=== PATIENT | male | born 1970 | race Caucasian/White ===

== ENCOUNTER 2019-11-22 10:44 | Outpatient (REF) | payer BC, SELFPAY ==
[2019-11-22 11:33] LABS: Blood Urea Nitrogen 13 mg/dL (9-16); Estimated Glomerular Filt Rate > 60
== END 2019-11-22 10:45 | disposition home or self-care (01) ==
LOC: HO.LAB 10:44
PROVIDERS: PCP Internal Medicine; Visit Provider Internal Medicine
DX: R53.83 Other fatigue (principal); Z86.19 Personal history of other infectious and parasitic diseases
CPT/HCPCS: 82565; 84520

== ENCOUNTER 2019-11-23 07:48 | Outpatient (REF) | payer BC, SELFPAY ==
--- NOTE | 2019-11-23 07:44 | CT_ITS ---
EXAMINATION: CT CHEST WITH CONTRAST CLINICAL INFORMATION: Pulmonary nodule follow-up COMPARISON: 08/16/2019 and 06/03/2019 TECHNIQUE: Multidetector volumetric CT imaging of the chest was obtained after the administration of 65 mL of Omnipaque 350 intravenous contrast without immediate adverse reactions. Axial MIP volume rendering provided. Sagittal and coronal reformatted images were obtained. This CT examination was performed using dose optimization techniques as appropriate, variously including the following: *Automated exposure control *Adjustment of mA and/or kV according to patient size (this includes techniques or standardized protocols for targeted exams where dose is matched to indication/reason for exam; i.e. extremities or head) *Use of iterative reconstruction technique DLP: 569 mGy-cm FINDINGS: c LUNGS: There is a 5 mm mean diameter left lower lobe subpleural nodule as seen on 4, image 523, which is stable from the previous examination in August, but significantly decreased in size from May, when it measured up to 1.8 cm. This is compatible with a convalescent infectious/inflammatory process. There are couple scattered calcified granulomata. No new or suspicious pulmonary nodules. Lungs are otherwise clear. No evidence of interstitial lung disease or pulmonary fibrosis. No significant bronchial wall thickening or bronchiectasis. MEDIASTINUM: The mediastinum is normal. PLEURA: There is no pleural effusion. No pleural mass or thickening. AXILLA: No lymphadenopathy. UPPER ABDOMEN: Diffuse hepatic steatosis. OSSEOUS STRUCTURES: Unremarkable. IMPRESSION: * Again seen is a 5 mm subpleural nodule within the left lateral costophrenic sulcus, stable from the examination August, but significantly decreased in size since May indicating convalescent infectious/inflammatory process. * No suspicious nodules or evidence of pulmonary malignancy. * Lungs otherwise clear. * Diffuse hepatic steatosis.
[2019-11-23] MEDS: iohexoL 350 MG/ML 100 ML INFUS..BTL IV (08:40)
== END 2019-11-23 07:49 | disposition home or self-care (01) ==
LOC: HO.CT 07:48
PROVIDERS: Visit Provider Internal Medicine
DX: R91.1 Solitary pulmonary nodule (principal); Z86.19 Personal history of other infectious and parasitic diseases
CPT/HCPCS: 71260

== ENCOUNTER 2020-02-07 07:38 | Outpatient (REF) | payer BC, SELFPAY ==
[2020-02-07 11:21] LABS: MANUAL DIFF FLAG NO
[2020-02-07 11:25] LABS: Basophils Absolute Auto 0.1 X10*3/uL (0.0-0.2); Basophils Percent Auto 0.9 % (0-2); Eosinophils Absolute Auto 0.1 X10*3/uL (0.0-0.4); Eosinophils Percent Auto 1.8 % (0-4); Hematocrit 43.5 % (42-52); Hemoglobin 13.5 g/dl (14.0-18.0); Imm Gran Abs Auto 0.13 X10*3/uL (0.00-0.03); Imm Gran Pct Auto 1.7 % (0.0-0.4); Lymphocytes Absolute Auto 1.6 X10*3/uL (1.2-4.9); Lymphocytes Percent Auto 20.5 % (20-40); Mean Corpuscular Hemoglobin 28.7 pg (27.0-33.0); Mean Corpuscular Volume 92.4 fL (80-98); Monocytes Absolute Auto 0.6 X10*3/uL (0.1-1.2); Monocytes Percent Auto 8.1 % (2-11); Neutrophils Absolute Auto 5.3 X10*3/uL (2.0-8.3); Platelet Count 223 X10*3/uL (160-400); Red Blood Count 4.71 X10*6/uL (4.60-5.80); Red Cell Distribution Width 13.3 % (11.0-16.0); White Blood Count 7.9 X10*3/uL (4.8-10.8)
[2020-02-07 11:41] LABS: Estimated Average Glucose 174 mg/dL; Hemoglobin A1c % 7.7 %
[2020-02-07 11:58] LABS: Alanine Aminotransferase 31 U/L (0-40); Albumin Level 4.2 g/dL (3.5-5.0); Alkaline Phosphatase 84 U/L (39-117); Anion Gap 15 (12-20); Aspartate Amino Transferase 22 U/L (5-37); Bilirubin Direct 0.2 mg/dL (0.0-0.5); Bilirubin Total 0.4 mg/dL (0.0-1.0); Blood Urea Nitrogen 15 mg/dL (9-16); Carbon Dioxide 26 mmol/L (22-29); Chloride 102 mmol/L (96-108); Cholesterol 154 mg/dL; Estimated Glomerular Filt Rate > 60; Glucose Fasting 168 mg/dL (60-99); HDL Cholesterol 47 mg/dL; LDL Cholesterol Calculated 81 mg/dl; Potassium 4.5 mmol/l (3.3-5.1); Sodium 138 mmol/L (135-145); Total Protein 7.2 g/dL (6.5-8.0); Triglycerides 134 mg/dL
[2020-02-07 12:19] LABS: Prostate Specific Antigen Scr 0.51 ng/mL (<0.05-4.0)
== END 2020-02-07 07:39 | disposition home or self-care (01) ==
LOC: HO.HMGCLDS 07:38
PROVIDERS: PCP Internal Medicine; Visit Provider Internal Medicine
DX: R53.83 Other fatigue (principal); E78.5 Hyperlipidemia, unspecified
CPT/HCPCS: 36415; 80051; 80061; 80076; 82565; 82947; 83036; 84153; 84520; 85025

== ENCOUNTER 2020-08-31 13:35 | Outpatient (REF) | payer BC, SELFPAY ==
--- NOTE | ~2020-08-31 | XR_ITS ---
EXAMINATION: XR KNEE, LEFT CLINICAL INFORMATION: Left knee pain. COMPARISON: None TECHNIQUE: Four views of the left knee. FINDINGS: No acute fracture or dislocation. Mild medial compartment joint space narrowing. Tiny medial and patellofemoral compartment marginal osteophytes. No osseous erosion. No significant joint effusion. No abnormal soft tissue calcification. XR/XR knee LT 4V IMPRESSION: Mild medial and patellofemoral compartment osteoarthritis.
== END 2020-08-31 13:36 | disposition home or self-care (01) ==
LOC: HO.HMGCX 13:35
PROVIDERS: PCP Internal Medicine; Visit Provider Internal Medicine
DX: M25.562 Pain in left knee (principal)
CPT/HCPCS: 73564

== ENCOUNTER 2020-09-03 07:05 | Outpatient (REF) | payer BC, SELFPAY ==
[2020-09-03 08:02] LABS: MANUAL DIFF FLAG NO
[2020-09-03 08:06] LABS: Basophils Absolute Auto 0.1 X10*3/uL (0.0-0.2); Basophils Percent Auto 0.8 % (0-2); Eosinophils Absolute Auto 0.2 X10*3/uL (0.0-0.4); Eosinophils Percent Auto 1.8 % (0-4); Hematocrit 41.3 % (42-52); Hemoglobin 12.9 g/dl (14.0-18.0); Imm Gran Abs Auto 0.06 X10*3/uL (0.00-0.03); Imm Gran Pct Auto 0.7 % (0.0-0.4); Lymphocytes Percent Auto 22.8 % (20-40); Mean Corpuscular HGB Conc 31.2 g/dl (31.0-36.0); Mean Corpuscular Hemoglobin 28.3 pg (27.0-33.0); Mean Corpuscular Volume 90.6 fL (80-98); Mean Platelet Volume 10.3 fL (9.4-12.4); Monocytes Absolute Auto 0.7 X10*3/uL (0.1-1.2); Monocytes Percent Auto 8.3 % (2-11); Neutrophils Absolute Auto 5.9 X10*3/uL (2.0-8.3); Neutrophils Percent Auto 65.6 % (45-73); Platelet Count 244 X10*3/uL (160-400); Red Blood Count 4.56 X10*6/uL (4.60-5.80); Red Cell Distribution Width 13.5 % (11.0-16.0)
[2020-09-03 08:19] LABS: Estimated Average Glucose 146 mg/dL; Hemoglobin A1c % 6.7 %
[2020-09-03 08:26] LABS: Alanine Aminotransferase 23 U/L (0-40); Albumin Level 4.4 g/dL (3.5-5.0); Alkaline Phosphatase 80 U/L (39-117); Anion Gap 14 (12-20); Aspartate Amino Transferase 24 U/L (5-37); Bilirubin Total 0.4 mg/dL (0.0-1.0); Blood Urea Nitrogen 17 mg/dL (9-16); Calcium 9.5 mg/dL (8.4-10.2); Carbon Dioxide 27 mmol/L (22-29); Chloride 104 mmol/L (96-108); Cholesterol 146 mg/dL; Estimated Glomerular Filt Rate > 60; Glucose Fasting 122 mg/dL (60-99); HDL Cholesterol 42 mg/dL; LDL Cholesterol Calculated 85 mg/dl; Sodium 140 mmol/L (135-145); Total Protein 7.4 g/dL (6.5-8.0); Triglycerides 97 mg/dL
[2020-09-03 08:53] LABS: Prostate Specific Antigen 0.42 ng/mL (<0.05-4.0)
== END 2020-09-03 07:06 | disposition home or self-care (01) ==
LOC: HO.LAB 07:05
PROVIDERS: PCP Internal Medicine; Visit Provider Internal Medicine
DX: Z00.00 Encounter for general adult medical examination without abnormal findings (principal); Z12.5 Encounter for screening for malignant neoplasm of prostate; E11.9 Type 2 diabetes mellitus without complications; R97.20 Elevated prostate specific antigen [PSA]; R53.83 Other fatigue; E78.00 Pure hypercholesterolemia, unspecified
CPT/HCPCS: 36415; 80053; 80061; 83036; 84153; 85025

== ENCOUNTER 2020-12-04 09:07 | Outpatient (REF) | payer BC, SELFPAY ==
[2020-12-04 10:38] LABS: C Reactive Protein 0.59 mg/dL (< or = 0.50)
[2020-12-04 10:43] LABS: Estimated Average Glucose 140 mg/dL; Hemoglobin A1c % 6.5 %
[2020-12-04 11:11] LABS: Erythrocyte Sedimentation Rate 7 MM/HR (0-15)
== END 2020-12-04 09:08 | disposition home or self-care (01) ==
LOC: HO.LAB 09:07
PROVIDERS: PCP Internal Medicine; Visit Provider Internal Medicine
DX: E11.9 Type 2 diabetes mellitus without complications (principal); R53.83 Other fatigue
CPT/HCPCS: 36415; 83036; 85652; 86140

== ENCOUNTER 2020-12-31 10:00 | Outpatient (RCR) | payer BC, SELFPAY ==
--- NOTE | 2020-12-04 13:53 | MHC.PT.EP ---
[facility] [place] Office [place] Office [place] Office [address] [phone] F: [phone] F: [phone] F: [phone] F: [phone] Physical Therapy Plan of Care Date of Evaluation: Date of Surgery: Diagnosis: Keerthi Knee Pain Assessment: Heriberto is a pleasant 50 yo gentleman with increasing knee pain keerthi over the last few months. 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 Upon exam, impairments include decreased knee ROM, decreased strength of hip rotators and abductors, he demonstrates altered gait and balance and increased pain. Functional limitations include decreased ability to perform static standing and longer distances of walking, decreased tolerance to performing higher demand homemaking tasks, decreased ability to participate in fitness and recreational activities and disrupted sleep. A pt is a good candidate for skilled PT due to age, potential remediation of impairments, typical disease/condition progression and prognosis, comorbidities, and motivation. pt would benefit from tailored program of therapeutic activities, functional training, gait training, postural education, neuromuscular re-education, and modalities as needed. Frequency and Duration: The patient will be seen 2 x week for 4 weeks Short Term Goals: INITIATE HEP AND PROMOTE SELF MANGEMENT OF SYMPTOMS IN 2 VISITS [facility] Goals: IN 6 WEEKS: TO DEMONSTRATE FULL KNEE ROM, EQUAL KEERTHI TO DEMONSTRATE FULL LE STRENGTH, EQUAL KEERTHI TO ASCEND AND DESCEND STAIRS WITHOUT PAIN GREATER THAN 2/10 TO AMBULATE AD KASHMIR ON LEVEL AND UNEVEN SURFACES FOR FITNESS WITHOUT PAIN GREATER THAN 2/10 TO PERFORM FULL FUNCTIONAL SQUAT WITHOUT SUBSTITUTION Treatment Plan: Modalities to reduce pain, spasms and effusion. Manual therapy to restore motion and function. Therapeutic exercise to improve strength and flexibility. Neuromuscular re-education for posture and balance. Therapeutic activities to return to functional activities of daily living. Electronically signed by: JAMSHID MOORE PT, DPT Please sign and return to therapist. Thank you for your referral.
--- NOTE | 2021-02-11 10:46 | MHC.PT.DC ---
[facility] [place] Office [place] Office [place] Office [address] Manuel Cruz [address] [phone] F: [phone] F: [phone] F: [phone] F: [phone] Physical Therapy Discharge Report Diagnosis: Ger Knee Pain Date of Surgery: Date of Evaluation: 12/04/20 Date of Discharge: 01/02/21 Treatments to Date: 6 Cancellations to Date: 2 No Shows to Date: 1 Discharge Status: Improved Function Patient Elected to Stop Discharge Summary: At last attended visit, Heriberto was progressing well and demonstrating increasing strength, increasing ROM and decreasing pain. He no showed for his last scheduled appointment and we were unable to reach him by phone. Current status is unknown. Electronically signed by: Umu Velasquez PT, DPT Please sign and return to therapist. Thank you for your referral.
== END 2021-02-11 10:47 | disposition home or self-care (01) ==
LOC: HO.PT 10:00
PROVIDERS: PCP Internal Medicine; Visit Provider Internal Medicine
DX: M25.561 Pain in right knee (principal); M25.562 Pain in left knee; M25.462 Effusion, left knee; M25.461 Effusion, right knee
CPT/HCPCS: 97110; 97112; 97161

== ENCOUNTER 2021-02-05 09:45 | Outpatient (REF) | payer BC, SELFPAY ==
[2021-02-05 11:17] LABS: MANUAL DIFF FLAG NO
[2021-02-05 11:32] LABS: Basophils Absolute Auto 0.1 X10*3/uL (0.0-0.2); Basophils Percent Auto 0.7 % (0-2); Eosinophils Absolute Auto 0.1 X10*3/uL (0.0-0.4); Eosinophils Percent Auto 1.1 % (0-4); Hematocrit 43.5 % (42.0-52.0); Hemoglobin 13.6 g/dl (14.0-18.0); Imm Gran Abs Auto 0.07 X10*3/uL (0.00-0.03); Imm Gran Pct Auto 0.8 % (0.0-0.4); Lymphocytes Absolute Auto 1.7 X10*3/uL (1.2-4.9); Lymphocytes Percent Auto 19.7 % (20-40); Mean Corpuscular HGB Conc 31.3 g/dl (31.0-36.0); Mean Corpuscular Hemoglobin 28.1 pg (27.0-33.0); Mean Corpuscular Volume 89.9 fL (80.0-98.0); Mean Platelet Volume 10.6 fL (9.4-12.4); Monocytes Absolute Auto 0.6 X10*3/uL (0.1-1.2); Monocytes Percent Auto 6.8 % (2-11); Neutrophils Absolute Auto 6.1 x10*3/uL (2.0-8.3); Neutrophils Percent Auto 70.9 % (45-73); Platelet Count 262 X10*3/uL (160-400); Red Blood Count 4.84 X10*6/uL (4.60-5.80); Red Cell Distribution Width 13.6 % (11.0-16.0); White Blood Count 8.5 X10*3/uL (4.8-10.8)
[2021-02-05 12:43] LABS: Alanine Aminotransferase 24 U/L (0-40); Albumin Level 4.3 g/dL (3.5-5.0); Alkaline Phosphatase 74 U/L (39-117); Anion Gap 15 (12-20); Aspartate Amino Transferase 19 U/L (5-37); Bilirubin Total 0.5 mg/dL (0.0-1.0); Blood Urea Nitrogen 14 mg/dL (9-16); Calcium 9.8 mg/dL (8.4-10.2); Carbon Dioxide 27 mmol/L (22-29); Chloride 103 mmol/L (96-108); Cholesterol 154 mg/dL; Estimated Glomerular Filt Rate > 60; HDL Cholesterol 47 mg/dL; LDL Cholesterol Calculated 87 mg/dl; Sodium 140 mmol/L (135-145); Total Protein 7.3 g/dL (6.5-8.0); Triglycerides 102 mg/dL
[2021-02-05 13:03] LABS: Prostate Specific Antigen 0.37 ng/mL (<0.05-4.0)
[2021-02-05 13:21] LABS: Glucose Fasting 122 mg/dL (60-99)
== END 2021-02-05 09:46 | disposition home or self-care (01) ==
LOC: HO.HMGCLDS 09:45
PROVIDERS: PCP Internal Medicine; Visit Provider Internal Medicine
DX: Z12.5 Encounter for screening for malignant neoplasm of prostate (principal); R53.83 Other fatigue
CPT/HCPCS: 36415; 80053; 80061; 84153; 85025

== ENCOUNTER 2021-02-15 06:33 | Day surgery (SDC) | payer BC, SELFPAY ==
--- NOTE | 2021-02-14 11:40 | HO.ANESPROP2 ---
Documented by User: Shani Santiago NP 02/14/21 11:46 HPI - Anesthesia Eval Consult details Narrative: 50yo M for Colonoscopy [facility] Past Medical History Medical History (Updated 02/14/21 @ 10:58 by Nicole Yates) COVID-19 Hypertension Inguinal hernia Non-insulin dependent type 2 diabetes mellitus Sleep apnea Umbilical hernia Social History Social History Patient Tobacco Use Status: Never used Tobacco Use of substances other than those prescribed or required for medical reasons: No Have you been hit, kicked, punched, or otherwise hurt by someone within the past year? If so, by whom?: No Are you DNR?: No Advance Directives: No Advance Directives Information Provided: Yes Advance Directives Date on File: 11/23/19 Meds Allergies Allergy/AdvReac Type Severity Reaction Status Date / Time No Known Allergies Allergy Unverified 10/27/19 14:59 [No Known Allergies*] Home Medications Medication Instructions Recorded Confirmed Last Taken Type Vitamin C 02/14/21 Unknown History Vitamin D (with calcium) 1 tab PO DAILY 02/14/21 02/14/21 Unknown History lisinopril 1 tab PO DAILY 02/14/21 02/14/21 Unknown History metformin 1 tab PO BID 02/14/21 02/14/21 Unknown History Exam Exam Date and Time: February 14, 2021 1140 Assessment and Plan Assessment Anesthesia Assessment: Chart Reviewed Documented by User: Ezequiel Tobias MD 02/15/21 07:13 [facility] Past Medical History Medical History (Updated 02/14/21 @ 10:58 by Nicole Yates) COVID-19 Hypertension Inguinal hernia Non-insulin dependent type 2 diabetes mellitus Sleep apnea Umbilical hernia Family History Family history of problems with anesthesia: No Surgical History History of Problems with Anesthesia: No Social History Social History Patient Tobacco Use Status: Never used Tobacco Use of substances other than those prescribed or required for medical reasons: No Have you been hit, kicked, punched, or otherwise hurt by someone within the past year? If so, by whom?: No Are you DNR?: No Advance Directives: No Advance Directives Information Provided: Yes Advance Directives Date on File: 11/23/19 Meds Allergies Allergy/AdvReac Type Severity Reaction Status Date / Time No Known Allergies Allergy Unverified 10/27/19 14:59 [No Known Allergies*] Home Medications Medication Instructions Recorded Confirmed Last Taken Type Vitamin C 02/14/21 Unknown History Vitamin D (with calcium) 1 tab PO DAILY 02/14/21 02/14/21 Unknown History lisinopril 1 tab PO DAILY 02/14/21 02/14/21 Unknown History metformin 1 tab PO BID 02/14/21 02/14/21 Unknown History Exam Airway Mallampati Class: III TM Dist: >3cm Neck ROM: Limited Partial: Upper Loose/Missing/Broken Teeth: Yes Heart: [id number] Lungs: cta b/l Assessment and Plan Assessment Anesthesia Assessment: Anesthesia Plan Discussed Final Anesthetic Review Family History of Problems with Anesthesia: No History of Problems with Anesthesia: No NPO: Yes ASA Class: III Final Preanesthetic Review: No Changes in Pt Med Stat, Meds/Allgs Chart Reviewed, Consent Obtained/Reviewed and Anes Risks/Benef Reviewed Patient Risk: Intermediate (airway) Procedure Risk: Low Assessment/Block/Sedation in SS: Assess/Block/Sedation-SS Anesthetic Plan Anesthetic Plan: MAC: and Agree w/ Assess. and Plan Disposition: Standard PACU
[2021-02-15 06:41] VITALS: BP 156/81; PULSE 84; RESP 18; TEMP 37; O2SAT 99; BMI 52.1
[2021-02-15 06:55] LABS: Glucose, Whole Blood 102 mg/dL (60-115)
[2021-02-15] MEDS: Lactated Ringers 1,000 ML 100 ML IVCONT (07:40)
[2021-02-15 08:52] VITALS: BP 119/66; PULSE 79; RESP 20; TEMP 36.1; O2SAT 95
--- NOTE | 2021-02-15 08:55 | PM.OP ---
Brief Operative Note Date of Service: 02/15/21 Pre-op diagnosis: Screening Post-op diagnosis: other (Rectal polyp, Internal hemorrhoids) Procedure: Colonoscopy to the cecum and TI with hot snare polypectomy and placement of 1 Resolution clip Surgeon: Ramin Donahue Anesthesia: MAC Was an Flight Service Agent used for this Procedure?: No Estimated blood loss (mL): 0 Pathology: other (A. Rectal polyp) Condition: stable Disposition: PACU
[2021-02-15 09:07] VITALS: BP 142/83; PULSE 66; RESP 18; TEMP 36.1; O2SAT 95
--- NOTE | 2021-02-15 09:42 | OP_ITS ---
SURGEON: Ramin Donahue MD PREOPERATIVE DIAGNOSIS: Colorectal cancer screening. POSTOPERATIVE DIAGNOSIS: PROCEDURE PERFORMED: Colonoscopy to cecum and terminal ileum with hot snare polypectomy and placement of 1 resolution clip. Full consent was obtained from him for this, including risks of bleeding and perforation. ESTIMATED BLOOD LOSS: COMPLICATIONS: ANESTHESIA: ASSISTANTS: SPECIMENS: POSTOPERATIVE DIAGNOSES: Colorectal cancer screening, rectal polyp, diverticulosis, ? of fibroepithelial polyp at dentate line, and internal hemorrhoids. PREOPERATIVE MEDICATION USED: Monitored anesthesia care. DESCRIPTION OF PROCEDURE: The patient was placed in the left lateral decubitus position. The digital rectal exam revealed no abnormalities. The Olympus video pediatric colonoscope was entered into the rectum and advanced easily to the cecum. Once in the cecum, I did identify normal-appearing cecal pouch with appendiceal orifice and a normal-appearing ileocecal valve. The terminal ileum was cannulated and appeared normal. Scope was withdrawn back in the colon. The entire cecum and ileocecal valve appeared normal. Scope was slowly withdrawn assessing all mucosal surfaces carefully. Preparation was excellent. There was a mild amount of sigmoid diverticulosis. I did not visualize any sign of colitis nor angiodysplasia. In the rectum, in the forward viewing position, was an approximately 1.5 cm polyp on a short stalk. It did not appear to be definitively adenomatous. However, it was removed with a hot snare polypectomy. The polypectomy site appeared clean, without any sign of residual polyp nor bleeding. A single resolution clip was deployed on the polypectomy site with good placement and good hemostasis. In the rectum, the scope was retroflexed visualizing prominent internal hemorrhoidal tissue. There was 1 particularly polypoid area that might have been a fibroepithelial polyp, but it was below the dentate line and therefore was not biopsied nor removed. The scope was straightened and withdrawn from the patient. He tolerated the procedure well and was returned to the recovery area in stable condition. IMPRESSION: 1. Rectal polyp, status post hot snare polypectomy. 2. Internal hemorrhoids and possible fibroepithelial polyp below the dentate line. 3. Diverticulosis. 4. Internal hemorrhoids. PLAN: The results of the pathology will be checked. If this is a tubular adenoma, I would recommend a followup colonoscopy within 3 years. He was advised not to use any aspirin or NSAIDs for 1 week. I shall speak with him about possibly seeing Dr. Ayala in consultation for further evaluation of his hemorrhoids, as well as the area that appears to be a fibroepithelial polyp to be sure it does not need to be removed for a more definitive pathology analysis. MD KEYLA Ortega/ITALO / [id number] MTDD
== END 2021-02-15 09:37 | disposition home or self-care (01) ==
PROVIDERS: PCP Internal Medicine; Visit Provider Internal Medicine
PROC: 0DJD8ZZ Inspection of Lower Intestinal Tract, Via Natural or Artificial Opening Endoscopic (ICD-10-PCS; CPT 45378; principal; 2021-02-15 07:30)
DX: Z12.11 Encounter for screening for malignant neoplasm of colon (principal); K62.1 Rectal polyp; K57.30 Diverticulosis of large intestine without perforation or abscess without bleeding; K64.8 Other hemorrhoids; I10 Essential (primary) hypertension; G47.33 Obstructive sleep apnea (adult) (pediatric); E11.9 Type 2 diabetes mellitus without complications; Z79.84 Long term (current) use of oral hypoglycemic drugs; Z79.899 Other long term (current) drug therapy; Z99.89 Dependence on other enabling machines and devices; Z86.16 Personal history of COVID-19
CPT/HCPCS: 45385; 82947; 88305

== ENCOUNTER → 2021-03-11 14:39 | Outpatient (BNVA) | payer BC, SELFPAY | PROVIDERS: PCP Internal Medicine; Visit Provider Surgery | DX: K64.9 Unspecified hemorrhoids (principal) | CPT/HCPCS: 46600 ==

== ENCOUNTER 2021-03-19 06:57 | Outpatient (REF) | payer BC, SELFPAY ==
[2021-03-19 07:51] LABS: Blood Urea Nitrogen 16 mg/dL (9-16); Estimated Glomerular Filt Rate > 60
== END 2021-03-19 06:58 | disposition home or self-care (01) ==
LOC: HO.LAB 06:57
PROVIDERS: PCP Internal Medicine; Visit Provider Internal Medicine
DX: R53.83 Other fatigue (principal)
CPT/HCPCS: 36415; 82565; 84520

== ENCOUNTER 2021-03-20 07:44 | Outpatient (REF) | payer BC, SELFPAY ==
--- NOTE | ~2021-03-20 | CT_ITS ---
EXAMINATION: CT CHEST WITH CONTRAST CLINICAL INFORMATION: Post Covid infection. Follow-up. COMPARISON: Previous chest CT most recent November 2019. TECHNIQUE: Multidetector volumetric CT imaging of the chest was obtained after the administration of 65 mL of Omnipaque 350 intravenous contrast without immediate adverse reactions. Axial MIP volume rendering provided. Sagittal and coronal reformatted images were obtained. This CT examination was performed using dose optimization techniques as appropriate, variously including the following: *Automated exposure control *Adjustment of mA and/or kV according to patient size (this includes techniques or standardized protocols for targeted exams where dose is matched to indication/reason for exam; i.e. extremities or head) *Use of iterative reconstruction technique DLP: 513 mGy-cm. FINDINGS: URB[employer] GARDENING SPECIALIST: Unremarkable. LUNGS: There are 2, 2 mm calcified left lower lobe nodules axial image 81 and 84 series 7 that are stable. The lungs are otherwise clear. No evidence of fibrotic lung disease is seen. No evidence of emphysema or bronchiectasis is seen. There is no endobronchial or endotracheal lesion. MEDIASTINUM: The mediastinum is normal. PLEURA: There is no pleural effusion. No pleural mass or thickening. AXILLA: No lymphadenopathy. UPPER ABDOMEN: There may be fatty infiltration of the liver. OSSEOUS STRUCTURES: There are degenerative changes of the spine. CT/CT chest w con IMPRESSION: Stable small calcified left lower lobe nodules probably representing calcified granulomas. No evidence of fibrotic lung disease. Fleischner guidelines were followed.
[2021-03-20] MEDS: iohexoL 350 MG/ML 100 ML INFUS..BTL 65 ML IV (08:56)
== END 2021-03-20 07:45 | disposition home or self-care (01) ==
LOC: HO.CT 07:44
PROVIDERS: PCP Internal Medicine; Visit Provider Internal Medicine
DX: R91.1 Solitary pulmonary nodule (principal); Z86.16 Personal history of COVID-19
CPT/HCPCS: 71260; Q9967

== ENCOUNTER 2021-06-06 03:18 | Emergency (ER) | payer BC, SELFPAY ==
--- NOTE | ~2021-06-06 | XR_ITS ---
EXAMINATION: XR CHEST CLINICAL INFORMATION: Chest pain. COMPARISON: CT chest 03/20/2021. TECHNIQUE: Frontal view of the chest was obtained. FINDINGS: Multiple external artifacts overlie the thorax. Normal appearance of the cardiomediastinal structures. No effusions or pneumothoraces. Normal pattern of pulmonary vasculature. No focal pulmonary consolidation. XR/XR chest 1V IMPRESSION: No acute cardiopulmonary abnormalities.
--- NOTE | 2021-06-06 03:20 | ECG_ITS ---
Test Reason : CHEST PAIN Blood Pressure : / mmHG Vent. Rate : 089 BPM Atrial Rate : 089 BPM P-R Int : 146 ms QRS Dur : 074 ms QT Int : 350 ms P-R-T Axes : 073 -04 -04 degrees QTc Int : 425 ms Normal sinus rhythm Nonspecific ST abnormality Borderline ECG When compared with ECG of 20-JAN-2007 14:40, No significant changes seen Referred By: Generic ED Physician Electronically Signed By:KAYLA DUTTON
--- NOTE | 2021-06-06 03:43 | ED_ITS ---
HPI - Chest Pain General Chief Complaint: Chest Pain Stated Complaint: chest pain, bloated Time Seen by Provider: 06/06/21 03:43 Source: patient Mode of arrival: ambulatory Limitations: no limitations History of Present Illness HPI narrative: Patient history of sleep apnea hypertension diabetes been having mid chest pain since yesterday feel lot of gas in the chest with mild epigastric pain no radiation of pain to the touch jaw or arm , no shortness of breath no diaphoresis no nausea vomiting patient felt better after burping no history of gastric problems in the past Related Data Home Medications Medication Instructions Recorded Confirmed Vitamin C 02/14/21 Vitamin D (with calcium) 1 tab PO DAILY 02/14/21 02/14/21 lisinopril 1 tab PO DAILY 02/14/21 02/14/21 metformin 1 tab PO BID 02/14/21 02/14/21 albuterol sulfate 90 mcg/actuation 0 mcg INHALATION 03/11/21 aerosol inhaler lorazepam 1 mg tablet 1 mg PO TID 03/11/21 Allergies Allergy/AdvReac Type Severity Reaction Status Date / Time No Known Allergies Allergy Verified 06/06/21 03:51 [No Known Allergies*] [facility] Past Medical History Medical History COVID-19 Hemorrhoids Hypertension Inguinal hernia Morbid obesity Non-insulin dependent type 2 diabetes mellitus Sleep apnea Umbilical hernia Social History Social History Patient Tobacco Use Status: Never used Tobacco Advance Directives: No Advance Directives Information Provided: Yes Advance Directives Date on File: 11/23/19 Physical Exam Vital Signs: Vital Signs: Last Vital Signs Temp 97.7 F 06/06/21 06:21 Pulse 78 06/06/21 06:21 Resp 17 06/06/21 06:21 BP 147/85 H 06/06/21 06:21 Pulse Ox 100 06/06/21 06:21 BMI result Body Mass Index 52.3 Appearance: Alert. Oriented X3. No acute distress. Obese patient ENT: Pharynx normal. Oral Mucosa moist Neck: Normal inspection. Neck supple. CVS: Normal heart rate and rhythm. Pulses normal. Respiratory: No respiratory distress. Equal air entry bilateral, no wheezing/rales/rhonchi Abdomen: Soft and nontender. Bowel sounds are present, no mass palpable, no CVA tenderness Skin: Skin warm and dry. Normal skin color. Normal skin turgor. Extremities: No lower extremity edema. No calf tenderness Neuro: Oriented X 3. MDM - Chest Pain MDM Narrative Medical decision making narrative: Patient atypical chest pain no EKG changes 2 sets of troponin negative patient advised to take baby aspirin daily no chest pain at this time advised to follow with cardiology for further workup Lab Data Attestation: I reviewed the patient's lab results. Result diagrams: 06/06/21 04:19 06/06/21 04:19 Labs: Lab Results 06/06/21 06/06/21 06/06/21 Range/Units 04:19 04:19 04:19 WBC 9.6 (4.8-10.8) X10*3/uL RBC 4.81 (4.60-5.80) X10*6/uL Hgb 13.3 L (14.0-18.0) g/dl Hct 42.7 (42.0-52.0) % MCV 88.8 (80.0-98.0) fL MCH 27.7 (27.0-33.0) pg MCHC 31.1 (31.0-36.0) g/dl RDW 13.7 (11.0-16.0) % Plt Count 249 (160-400) X10*3/uL MPV 10.3 (9.4-12.4) fL Immature Gran % (Auto) 0.6 H (0.0-0.4) % Neut % (Auto) 72.6 (45-73) % Lymph % (Auto) 17.4 L (20-40) % [place] % (Auto) 7.9 (2-11) % Eos % (Auto) 0.9 (0-4) % Baso % (Auto) 0.6 (0-2) % Lymph # (Auto) 1.7 (1.2-4.9) X10*3/uL [place] # (Auto) 0.8 (0.1-1.2) X10*3/uL Eos # (Auto) 0.1 (0.0-0.4) X10*3/uL Baso # (Auto) 0.1 (0.0-0.2) X10*3/uL Abs Immat Gran (auto) 0.06 H (0.00-0.03) X10*3/uL Absolute Neuts (auto) 6.9 (2.0-8.3) x10*3/uL Absolute Nucleated RBC 0.000 (0.0-0.012) X10*3/uL Nucleated RBC % (auto) 0.0 (0.0-0.2) /100WBC Sodium 136 (135-145) mmol/L Potassium 4.4 (3.3-5.1) mmol/L Chloride 102 (96-108) mmol/L Carbon Dioxide 26 (22-29) mmol/L Anion Gap 12 (12-20) BUN 14 (9-16) mg/dL Creatinine 0.81 (0.5-1.4) mg/dL Estim Creat Clear Calc 183.0 Estimated GFR > 60 Random Glucose 122 H (60-115) mg/dL Calcium 9.5 (8.4-10.2) mg/dL Troponin I High Sens < 3.5 (<3.5-35.0) ng/L 06/06/21 Range/Units 06:19 WBC (4.8-10.8) X10*3/uL RBC (4.60-5.80) X10*6/uL Hgb (14.0-18.0) g/dl Hct (42.0-52.0) % MCV (80.0-98.0) fL MCH (27.0-33.0) pg MCHC (31.0-36.0) g/dl RDW (11.0-16.0) % Plt Count (160-400) X10*3/uL MPV (9.4-12.4) fL Immature Gran % (Auto) (0.0-0.4) % Neut % (Auto) (45-73) % Lymph % (Auto) (20-40) % [place] % (Auto) (2-11) % Eos % (Auto) (0-4) % Baso % (Auto) (0-2) % Lymph # (Auto) (1.2-4.9) X10*3/uL [place] # (Auto) (0.1-1.2) X10*3/uL Eos # (Auto) (0.0-0.4) X10*3/uL Baso # (Auto) (0.0-0.2) X10*3/uL Abs Immat Gran (auto) (0.00-0.03) X10*3/uL Absolute Neuts (auto) (2.0-8.3) x10*3/uL Absolute Nucleated RBC (0.0-0.012) X10*3/uL Nucleated RBC % (auto) (0.0-0.2) /100WBC Sodium (135-145) mmol/L Potassium (3.3-5.1) mmol/L Chloride (96-108) mmol/L Carbon Dioxide (22-29) mmol/L Anion Gap (12-20) BUN (9-16) mg/dL Creatinine (0.5-1.4) mg/dL Estim Creat Clear Calc Estimated GFR Random Glucose (60-115) mg/dL Calcium (8.4-10.2) mg/dL Troponin I High Sens < 3.5 (<3.5-35.0) ng/L ECG Data ECG #1: Attestation: I personally reviewed and interpreted this ECG as follows: Interpretation: Normal sinus rhythm heart rate 89 beats per minute normal interval normal axis no acute ST wave changes no acute ischemia Discharge Plan Discharge Clinical Impression: Chest pain Patient Disposition: Home, Self-Care Instructions: Chest Pain (ED) Additional Instructions: Take baby aspirin daily Report to the ER if worsening of chest pain or if chest pain continues See cardiology for further workup including stress test Prescriptions: No Action Vitamin C 500 mg capsule 0RF Vitamin D (with calcium) 25 mg tablet 1 tab PO DAILY 0RF lisinopril 10 mg tablet 1 tab PO DAILY 0RF metformin 500 mg tablet 1 tab PO BID 0RF lorazepam 1 mg tablet 1 mg PO TID 0RF albuterol sulfate 90 mcg/actuation HFA aerosol inhaler 0 mcg inhalation 0RF Referrals: Antoine Okeefe MD [Physician] - 1 week
[2021-06-06 03:51] VITALS: BP 144/78; PULSE 79; RESP 16; TEMP 37; O2SAT 100; BMI 52.3
[2021-06-06 04:23] VITALS: PULSE 79; RESP 20; O2SAT 98
[2021-06-06 04:23] LABS: MANUAL DIFF FLAG NO
[2021-06-06 04:24] LABS: Basophils Absolute Auto 0.1 X10*3/uL (0.0-0.2); Basophils Percent Auto 0.6 % (0-2); Eosinophils Absolute Auto 0.1 X10*3/uL (0.0-0.4); Eosinophils Percent Auto 0.9 % (0-4); Hematocrit 42.7 % (42.0-52.0); Hemoglobin 13.3 g/dl (14.0-18.0); Imm Gran Abs Auto 0.06 X10*3/uL (0.00-0.03); Imm Gran Pct Auto 0.6 % (0.0-0.4); Lymphocytes Absolute Auto 1.7 X10*3/uL (1.2-4.9); Lymphocytes Percent Auto 17.4 % (20-40); Mean Corpuscular HGB Conc 31.1 g/dl (31.0-36.0); Mean Corpuscular Hemoglobin 27.7 pg (27.0-33.0); Mean Corpuscular Volume 88.8 fL (80.0-98.0); Mean Platelet Volume 10.3 fL (9.4-12.4); Monocytes Absolute Auto 0.8 X10*3/uL (0.1-1.2); Monocytes Percent Auto 7.9 % (2-11); Neutrophils Absolute Auto 6.9 x10*3/uL (2.0-8.3); Neutrophils Percent Auto 72.6 % (45-73); Platelet Count 249 X10*3/uL (160-400); Red Blood Count 4.81 X10*6/uL (4.60-5.80); Red Cell Distribution Width 13.7 % (11.0-16.0); White Blood Count 9.6 X10*3/uL (4.8-10.8)
[2021-06-06] MEDS: Aspirin 81 MG TAB.CHEW PO (04:25)
[2021-06-06] MEDS: Famotidine/PF 20 MG/2 ML VIAL IVPUSH (04:25)
[2021-06-06 04:41] LABS: Anion Gap 12 (12-20); Blood Urea Nitrogen 14 mg/dL (9-16); Calcium 9.5 mg/dL (8.4-10.2); Carbon Dioxide 26 mmol/L (22-29); Chloride 102 mmol/L (96-108); Estimated Glomerular Filt Rate > 60; Glucose Random 122 mg/dL (60-115); Potassium 4.4 mmol/L (3.3-5.1); Sodium 136 mmol/L (135-145)
[2021-06-06 04:42] LABS: Troponin-I High Sensitivity < 3.5 ng/L (<3.5-35.0)
[2021-06-06 06:21] VITALS: BP 147/85; PULSE 78; RESP 17; TEMP 36.5; O2SAT 100
[2021-06-06 06:41] LABS: Troponin-I High Sensitivity < 3.5 ng/L (<3.5-35.0)
== END 2021-06-06 07:23 | disposition home or self-care (01) ==
PROVIDERS: Emergency Provider Internal Medicine; PCP Internal Medicine
DX: R07.9 Chest pain, unspecified (principal); I10 Essential (primary) hypertension; E11.9 Type 2 diabetes mellitus without complications; E66.01 Morbid (severe) obesity due to excess calories; Z68.43 Body mass index [BMI] 50.0-59.9, adult
CPT/HCPCS: 36415; 71045; 80048; 84484; 85025; 93005; 96374; 99284

== ENCOUNTER 2021-06-13 10:19 | Outpatient (REF) | payer BC, SELFPAY ==
[2021-06-13 11:48] LABS: Estimated Average Glucose 137 mg/dL; Hemoglobin A1c % 6.4 %
== END 2021-06-13 10:20 | disposition home or self-care (01) ==
LOC: HO.HMGCLDS 10:19
PROVIDERS: PCP Internal Medicine; Visit Provider Internal Medicine
DX: E11.9 Type 2 diabetes mellitus without complications (principal)
CPT/HCPCS: 36415; 83036

== ENCOUNTER → 2021-07-10 13:16 | Outpatient (BNVA) | payer BC, SELFPAY | PROVIDERS: PCP Internal Medicine; Referring Provider Internal Medicine; Visit Provider Internal Medicine | DX: Z13.89 Encounter for screening for other disorder (principal) ==

== ENCOUNTER → 2021-08-20 08:23 | Outpatient (REF) | payer BC, SELFPAY ==
--- NOTE | ~2021-08-20 | NM_ITS ---
Exercise Myocardial perfusion study Indication: Precordial chest pain to evaluate for myocardial ischemia Technique: The patient was brought in for an exercise perfusion study on 08/20/2021. Patient performed exercise as per [place] protocol and was injected 45 mCi of sestamibi was given intravenously one target HR was achieved. Images were obtained using the SPECT gamma camera interlaced with the gating device. Images were obtained in supine position. Resting perfusion study was performed on 08/22/2001. Patient was administered 45 mCi of sestamibi intravenously at rest. Images were then obtained in supine position. Images obtained with and without CT attenuation. Total DLP 222 mGy-cm. Images were processed with the software and compared side to side in short axis, horizontal long axis and vertical long axis views. Findings: The stress perfusion study showed non attenuated images show mildly to moderately reduced uptake in the basal and mid lateral wall of the LV myocardium as well as mildly reduced uptake in the basal septum of the LV myocardium. Attenuated corrected images show mildly reduced uptake in the basal lateral wall of the LV myocardium. The gated study shows normal LV systolic function with calculated LVEF of 74%. LV cavity is normal in size. The gated study shows normal systolic wall thickening and contraction of all segments. There is no transient ischemic dilation. Resting study shows non attenuated images show uptake in the basal and mid lateral wall as well as mildly reduced uptake in the basal septum of the LV myocardium. Attenuation corrected images show improved uptake in the basal lateral wall of the LV myocardium. Gating at rest reveals normal systolic wall motion with ejection fraction at 59%. The findings are consistent with reversible defect of the basal lateral wall consistent with ischemia. NM/NM cardiolite stress test Impression: 1. Basal lateral wall ischemia 2. Gated LVEF is 59% 3. Transient ischemic dilatation not present Stress EKG is negative for ischemia
--- NOTE | 2021-08-20 08:27 | CA_ITS ---
Acquisition Time: 2021-08-20 08:32:48 Total Exercise Time: 00:05:38 Test Indications: Chest Pain Medications: Protocol: LESLY Max HR: 171 BPM 101% of Pred: 168 BPM Max BP: 146/066 mmHG Max Work Load: 7.2 METS Exercise stress nuclear test using Lesly protocol, total of 5 min 38 sec, METS 7.20 and TAPHR up tp 101%. Pt tolerated well, denies any anginal sx, EKG with occasional PAC's, without ischemic changes during exercise or in recovery. Nuclear images to follow. Normotensive response to exercise. Test reviewed with Dr. Vargas Referred By: Sergey Magaña Overread By: Marla Ojeda NP
== END ==
LOC: HO.CARD 08:23
PROVIDERS: PCP Internal Medicine; Visit Provider Internal Medicine
DX: R07.2 Precordial pain (principal)
CPT/HCPCS: 78452; 93017; A9500

== ENCOUNTER → 2021-08-28 09:26 | Outpatient (REF) | payer BC, SELFPAY ==
--- NOTE | 2021-08-28 09:29 | CA_ITS ---
Transthoracic Echocardiogram Patient (Last, First, Middle): Heriberto Foley F Gender: Male Date of : 1970 Age: 51 Procedure Date: 08/28/2021 Procedure Type: Transthoracic Echocardiogram Location: OP Height: 185.42 cm Weight: 181.44 kg BSA: 2.89 m2 Heart Rate: 79 bpm BP: 124 / 78 mmHg Furnace Charger: JOSE Referring MD: Sergey Magaña MD Stator Plate Washer: Sean Vargas MD Symptoms: R07.2 - Precordial pain Study Quality: Adequate/Contrast ECG Rhythm: Sinus Conclusions: - 1. Technically limited study despite use of contrast agent 2. Normal LV systolic and diastolic function 3. Limited visualization of cardiac valves with normal cardiac valvular Doppler Findings Procedure Information Contrast agent, definity, is being given per protocol without apparent complications. Left Ventricle Normal left ventricular size, thickness, and systolic function. The visually estimated ejection fraction is between 65-70%. There is no evidence of regional wall motion abnormalities. Spectral Doppler is indicative of a normal filling pattern. Right Ventricle Normal right ventricular cavity size and systolic function. Atria The left atrium is normal in size. Interatrial shunt cannot be excluded. The right atrium was not well visualized. Aortic Valve The aortic valve was not well visualized. There is no aortic valve stenosis. There is no aortic valve regurgitation. Mitral Valve The mitral valve was not well visualized. There is no mitral valve regurgitation. There is no mitral valve stenosis. Pulmonic Valve The pulmonic valve was not well visualized. Tricuspid Valve The tricuspid valve was not well visualized. Tricuspid regurgitation envelope is inadequate for calculation of right ventricular systolic pressure. Great Vessels The aorta was not well visualized. The pulmonary artery was not well visualized. Venous The inferior vena cava was not well visualized. Pericardium/Pleural The pericardium was not well visualized. Prior Study Comparison No prior study available for comparison. Measurements 2D Linear Measurements IVSd: 0.72 0.6-0.9/0.6-1.0 cm LVIDd: 5.25 3.9-5.3/4.2-5.9 cm LVIDd Index: 1.82 2.4-3.2/2.2-3.1 cm/m2 LVIDs: 3.03 2.0-3.6 cm LVPWd: 0.70 0.7-1.1 cm LA Diam: 3.10 2.7-3.8/3.0-4.0 cm LAIDs Index: 1.07 1.5-2.3 cm/m2 LV Mass: 158.26 67-162/88-224 g LV Mass Index: 54.76 43-95/49-115 g/m2 LVOT Diam: 2.60 3.0+(-)1.3 cm 2D Systolic Function EF 4C: 68.50 >55% EF 2C: 77.00 >55% Mitral Valve MV Pk E: 0.90 MV PK A: 0.70 MV Decel Time: 204.00 E/A: 1.30 E'Lateral: 11.20 E'Medial: 9.68 E/E' Med: 9.30 E/E' Lat: 8.10 PHT: 60.00 MVA PHT: 3.67 Decel Citrus: 4.44 Aortic Valve AoV Pk Kareem: 1.55 AoV Mn Kareem: 1.10 AoV VTI: 0.27 AoV Pk Grad: 10.00 Aov Mn Grad: 5.00 REGINA Cont.VTI: 4.81 LVOT LVOT Pk Kareem: 1.31 LVOT Mn Kareem: 0.89 LVOT VTI: 0.24 LVOT Pk Grad: 7.00 LVOT Mn Grad: 4.00 LVOT Diam: 2.60 LVOT Area: 5.31 Diastolic Function MV Pk E: 0.90 MV Pk A: 0.70 E/A: 1.30 E'Medial: 9.68 E/E' Med: 9.30 E' Laterial: 11.20 E/E' Lat: 8.10 Right Ventricle TAPSE (mm): 26.90 TVS' Kareem: 16.00 Great Vessels Aorta Sinus of Valsalva: 3.60 2.0-3.5 cm Ao Asc: 3.30 2.1-3.4 cm Pulmonary Valve PV Pk Kareem: 1.10 Peak PV Grad: 5.00 Updated in Other Vendor System with Status of Final Sean Vargas MD electronically signed on 08/28/2021 12:01:55 PM with status of Final
== END ==
LOC: HO.CARD 09:26
PROVIDERS: PCP Internal Medicine; Visit Provider Internal Medicine
DX: R07.2 Precordial pain (principal)
CPT/HCPCS: 93306; Q9957

== ENCOUNTER 2021-09-16 07:58 | Outpatient (REF) | payer BC, SELFPAY ==
[2021-09-16 11:33] LABS: Estimated Average Glucose 131 mg/dL; Hemoglobin A1c % 6.2 %
[2021-09-16 12:00] LABS: Cholesterol 158 mg/dL; HDL Cholesterol 45 mg/dL; LDL Cholesterol Calculated 94 mg/dl; Triglycerides 99 mg/dL
== END 2021-09-16 07:59 | disposition home or self-care (01) ==
LOC: HO.HMGCLDS 07:58
PROVIDERS: PCP Internal Medicine; Visit Provider Internal Medicine
DX: E78.5 Hyperlipidemia, unspecified (principal); E11.9 Type 2 diabetes mellitus without complications
CPT/HCPCS: 36415; 80061; 83036

== ENCOUNTER 2021-10-17 08:00 | Outpatient (REF) | payer BC, SELFPAY ==
[2021-10-22 15:10] LABS: H Pylori Breath Test Negative (Negative)
== END 2021-10-17 08:01 | disposition home or self-care (01) ==
LOC: HO.LNP 08:00
PROVIDERS: Visit Provider Physician Assistant
DX: Z01.818 Encounter for other preprocedural examination (principal); E66.01 Morbid (severe) obesity due to excess calories; I10 Essential (primary) hypertension; E11.8 Type 2 diabetes mellitus with unspecified complications
CPT/HCPCS: 83013

== ENCOUNTER 2021-10-23 08:23 | Outpatient (REF) | payer BC, SELFPAY ==
[2021-10-23 08:39] LABS: MANUAL DIFF FLAG NO
[2021-10-23 09:05] LABS: Basophils Absolute Auto 0.1 X10*3/uL (0.0-0.2); Basophils Percent Auto 0.9 % (0-2); Eosinophils Absolute Auto 0.1 X10*3/uL (0.0-0.4); Eosinophils Percent Auto 1.1 % (0-4); Hematocrit 43.7 % (42.0-52.0); Hemoglobin 13.7 g/dl (14.0-18.0); Imm Gran Abs Auto 0.06 X10*3/uL (0.00-0.03); Imm Gran Pct Auto 0.7 % (0.0-0.4); Lymphocytes Absolute Auto 1.8 X10*3/uL (1.2-4.9); Lymphocytes Percent Auto 22.6 % (20-40); Mean Corpuscular HGB Conc 31.4 g/dl (31.0-36.0); Mean Corpuscular Hemoglobin 27.7 pg (27.0-33.0); Mean Corpuscular Volume 88.5 fL (80.0-98.0); Mean Platelet Volume 10.4 fL (9.4-12.4); Monocytes Absolute Auto 0.6 X10*3/uL (0.1-1.2); Monocytes Percent Auto 7.7 % (2-11); Neutrophils Absolute Auto 5.4 x10*3/uL (2.0-8.3); Platelet Count 244 X10*3/uL (160-400); Red Blood Count 4.94 X10*6/uL (4.60-5.80); Red Cell Distribution Width 13.6 % (11.0-16.0); White Blood Count 8.1 X10*3/uL (4.8-10.8)
[2021-10-23 09:14] LABS: Estimated Average Glucose 131 mg/dL; Hemoglobin A1c % 6.2 %
[2021-10-23 09:47] LABS: Alanine Aminotransferase 29 U/L (0-40); Albumin Level 4.3 g/dL (3.5-5.0); Alkaline Phosphatase 74 U/L (39-117); Anion Gap 13 (12-20); Aspartate Amino Transferase 20 U/L (5-37); Bilirubin Total 0.6 mg/dL (0.0-1.0); Blood Urea Nitrogen 18 mg/dL (9-16); C Reactive Protein 1.57 mg/dL (< or = 0.50); Calcium 9.3 mg/dL (8.4-10.2); Carbon Dioxide 27 mmol/L (22-29); Chloride 103 mmol/L (96-108); Cholesterol 167 mg/dL; Estimated Glomerular Filt Rate > 60; Glucose Random 115 mg/dL (60-115); HDL Cholesterol 49 mg/dL; Iron 89 mcg/dL (45-160); LDL Cholesterol Calculated 98 mg/dl; Percent Iron Saturation 28 % (15-50); Potassium 5.3 mmol/L (3.3-5.1); Sodium 138 mmol/L (135-145); Total Iron Binding Capacity 316 mcg/dL (228-428); Total Protein 7.4 g/dL (6.5-8.0); Triglycerides 101 mg/dL; Unsaturated Iron Binding 227 ug/dL
[2021-10-23 09:56] LABS: Ferritin 189 ng/mL (20-250); Insulin 53 uU/mL (2-29); Vitamin D 25-OH Total 24.1 ng/mL (>30)
[2021-10-23 10:08] LABS: Vitamin B12 311 pg/mL (200-900)
[2021-10-24 14:03] LABS: Calcium (PTHI) 9.6 mg/dL (8.6-10.3); PTHI 70 pg/mL (16-77)
[2021-10-27 18:46] LABS: Zinc 80 mcg/dL (60-130)
[2021-10-28 06:22] LABS: Vitamin B1 10 nmol/L (8-30)
[2021-10-30 19:17] LABS: Vitamin A 59 mcg/dL (38-98)
== END 2021-10-23 08:24 | disposition home or self-care (01) ==
LOC: HO.LAB 08:23
PROVIDERS: PCP Internal Medicine; Visit Provider Physician Assistant
DX: Z01.818 Encounter for other preprocedural examination (principal); E66.01 Morbid (severe) obesity due to excess calories; I10 Essential (primary) hypertension; E11.8 Type 2 diabetes mellitus with unspecified complications
CPT/HCPCS: 36415; 80053; 80061; 82306; 82607; 82728; 82746; 83036; 83525; 83540; 83970; 84425; 84443; 84590; 84630; 85025; 86140

== ENCOUNTER 2021-11-04 08:37 | Outpatient (REF) | payer BC, SELFPAY ==
[2021-11-04 09:46] LABS: Potassium 5.2 mmol/L (3.3-5.1)
== END 2021-11-04 08:38 | disposition home or self-care (01) ==
LOC: HO.LAB 08:37
PROVIDERS: PCP Internal Medicine; Visit Provider Physician Assistant
DX: E87.5 Hyperkalemia (principal)
CPT/HCPCS: 36415; 84132

== ENCOUNTER → 2021-11-11 09:01 | Outpatient (BNVA) | payer BC, SELFPAY | PROVIDERS: PCP Internal Medicine; Referring Provider Physician Assistant; Visit Provider Counselor Mental Health | DX: F41.1 Generalized anxiety disorder (principal); E66.01 Morbid (severe) obesity due to excess calories | CPT/HCPCS: 90791 ==

== ENCOUNTER 2021-11-26 10:36 | Outpatient (REF) | payer BC, SELFPAY ==
[2021-11-26 11:05] LABS: COVID-19 Test Positive (Negative)
== END 2021-11-26 10:37 | disposition home or self-care (01) ==
LOC: HO.LAB 10:36
PROVIDERS: Visit Provider Internal Medicine
DX: Z20.822 Contact with and (suspected) exposure to COVID-19 (principal)
CPT/HCPCS: 87635; C9803

== ENCOUNTER 2022-02-12 06:28 | Outpatient (REF) | payer BC, SELFPAY ==
[2022-02-12 11:11] LABS: MANUAL DIFF FLAG NO
[2022-02-12 11:31] LABS: Basophils Absolute Auto 0.1 X10*3/uL (0.0-0.2); Basophils Percent Auto 0.8 % (0-2); Eosinophils Absolute Auto 0.1 X10*3/uL (0.0-0.4); Eosinophils Percent Auto 1.7 % (0-4); Hematocrit 42.9 % (42.0-52.0); Hemoglobin 13.1 g/dl (14.0-18.0); Imm Gran Abs Auto 0.08 X10*3/uL (0.00-0.03); Lymphocytes Absolute Auto 1.9 X10*3/uL (1.2-4.9); Lymphocytes Percent Auto 22.2 % (20-40); Mean Corpuscular HGB Conc 30.5 g/dl (31.0-36.0); Mean Corpuscular Hemoglobin 28.1 pg (27.0-33.0); Mean Corpuscular Volume 92.1 fL (80.0-98.0); Monocytes Absolute Auto 0.6 X10*3/uL (0.1-1.2); Monocytes Percent Auto 7.4 % (2-11); Neutrophils Absolute Auto 5.6 x10*3/uL (2.0-8.3); Neutrophils Percent Auto 66.9 % (45-73); Platelet Count 230 X10*3/uL (160-400); Red Blood Count 4.66 X10*6/uL (4.60-5.80); Red Cell Distribution Width 13.9 % (11.0-16.0); White Blood Count 8.3 X10*3/uL (4.8-10.8)
[2022-02-12 11:35] LABS: Estimated Average Glucose 131 mg/dL; Hemoglobin A1C 149.6525 umol/L; Hemoglobin A1c % 6.2 %
[2022-02-12 12:00] LABS: Alanine Aminotransferase 20 U/L (0-40); Alkaline Phosphatase 71 U/L (39-117); Anion Gap 10 (12-20); Aspartate Amino Transferase 18 U/L (5-37); Bilirubin Direct 0.2 mg/dL (0.0-0.5); Bilirubin Total 0.4 mg/dL (0.0-1.0); Blood Urea Nitrogen 17 mg/dL (9-16); Carbon Dioxide 29 mmol/L (22-29); Chloride 105 mmol/L (96-108); Cholesterol 143 mg/dL; Estimated Glomerular Filt Rate > 60; Glucose Fasting 115 mg/dL (60-99); HDL Cholesterol 42 mg/dL; LDL Cholesterol Calculated 80 mg/dl; Potassium 5.1 mmol/L (3.3-5.1); Prostate Specific Antigen 0.52 ng/mL (<0.05-4.0); Sodium 139 mmol/L (135-145); Total Protein 6.8 g/dL (6.5-8.0); Triglycerides 108 mg/dL
== END 2022-02-12 06:29 | disposition home or self-care (01) ==
LOC: HO.HMGCLDS 06:28
PROVIDERS: PCP Internal Medicine; Visit Provider Internal Medicine
DX: Z12.5 Encounter for screening for malignant neoplasm of prostate (principal); R53.83 Other fatigue; E11.9 Type 2 diabetes mellitus without complications; E87.5 Hyperkalemia
CPT/HCPCS: 36415; 80051; 80061; 80076; 82565; 82947; 83036; 84153; 84520; 85025

== ENCOUNTER 2022-05-15 11:27 | Outpatient (REF) | payer BC, SELFPAY ==
[2022-05-15 14:34] LABS: Estimated Average Glucose 137 mg/dL; Hemoglobin A1c % 6.4 %
[2022-05-25 11:49] LABS: Testosterone, Total 230 ng/dL (250-1100)
== END 2022-05-15 11:28 | disposition home or self-care (01) ==
LOC: HO.HMGCLDS 11:27
PROVIDERS: PCP Internal Medicine; Visit Provider Internal Medicine
DX: N52.9 Male erectile dysfunction, unspecified (principal); R53.83 Other fatigue; E11.9 Type 2 diabetes mellitus without complications
CPT/HCPCS: 36415; 83036; 84403

== ENCOUNTER → 2022-07-02 10:50 | Outpatient (BNVA) | payer BC, SELFPAY | PROVIDERS: PCP Internal Medicine; Visit Provider Nurse Practitioner Family ==

== ENCOUNTER 2022-07-05 07:03 | Outpatient (REF) | payer BC, SELFPAY ==
[2022-07-12 17:58] LABS: Testosterone, Total 189 ng/dL (250-1100)
== END 2022-07-05 07:04 | disposition home or self-care (01) ==
LOC: HO.HMGCLDS 07:03
PROVIDERS: PCP Internal Medicine; Visit Provider Nurse Practitioner Family
DX: N52.9 Male erectile dysfunction, unspecified (principal); R79.89 Other specified abnormal findings of blood chemistry
CPT/HCPCS: 36415; 84402; 84403

== ENCOUNTER 2022-10-21 07:37 | Outpatient (REF) | payer BC, SELFPAY ==
[2022-10-26 15:43] LABS: Testosterone, Free 17.5 pg/mL (35.0-155.0); Testosterone, Total 147 ng/dL (250-1100)
== END 2022-10-21 07:38 | disposition home or self-care (01) ==
LOC: HO.HMGCLDS 07:37
PROVIDERS: PCP Internal Medicine; Visit Provider Nurse Practitioner Family
DX: N52.9 Male erectile dysfunction, unspecified (principal); R79.89 Other specified abnormal findings of blood chemistry
CPT/HCPCS: 36415; 84402; 84403

== ENCOUNTER 2022-10-31 08:44 | Outpatient (AMB) | payer BC, SELFPAY ==
--- NOTE | 2022-10-31 08:53 | MHC.OFFVIS ---
Intake Intake Visit Reasons: 3 month labs Intake Note: Patient presents for follow up visit erectile dysfunction/ low testosterone/labs (testosterone 189) Urology Medications: Sildenafil Blood Thinner: none Dietary Supervisor Required: No Accompanied by: Self / Same As Patient Allergies No Known Allergies [No Known Allergies*] Allergy (Verified 11/01/22 20:40) Medication List - Last Reconciled 11/01/22 by FIDENCIO BlancoP- albuterol sulfate 90 mcg/actuation 0 mcg inhalation lisinopril 10 mg PO DAILY lorazepam 1 mg PO TID PRN metformin 500 mg PO BID metoprolol succinate ER 25 mg PO DAILY sildenafil 100 mg PO DAILY PRN tadalafil (Cialis) 5 mg PO DAILY 90 days testosterone 2 pumps topical DAILY 30 days [Vitamin C ] [Vitamin D (with calcium) 1 tab PO DAILY] HPI HPI Comments History of Present Illness Details Heriberto is a pleasant 52-year-old male patient of Dr. Mckeon. He has a past medical history of diabetes, hypertension, obesity, and sleep apnea. He presents to the office today for follow-up. Of note, patient was seen as a new patient for erectile dysfunction and hypogonadism approximately 4 months ago at which time he was started on low-dose Cialis 5 mg daily. When asked patient reports to be doing and feeling well. He reports noting somewhat improvement in maintaining erections since starting 5 mg of Cialis daily. Recent labs reviewed with the patient today. Testosterone: 04/03--230, 07/01--189 free testosterone 35, 11/01--147 and free testosterone 17.5 PSA's: 08/29--0.4, 01/29--0.4, 03/03-- 0.5 He does report having sleep apnea and being extremely compliant with CPAP machine. Discussed at length importance of weight loss, healthy eating, and adequate amount of sleep in relation to erectile dysfunction as well as overall health and well-being. When asked he denies urinary urgency, urinary frequency, incontinence, nocturia, hematuria, dysuria, foul smelling urine, changes to urinary stream, flank pain, fever, and or chills. He is happy with his current voiding parameters. Discussed at length treatment options for erectile dysfunction as well as hypogonadism. Discussed obtaining FSH, LH, albumin, estradiol, prolactin, and SHBG for further assessment evaluation. Once obtained discussed starting testosterone as discussed given decrease in testosterone levels and patient continues to report symptoms of hypogonadism and issues with maintaining erections. Discussed at length importance of managing diabetes for improvement in erectile dysfunction as well as overall health and well-being. A1c 06/01--6.4. FORMERLY [facility] Medical History COVID-19 Hemorrhoids Hypertension Inguinal hernia Morbid obesity Non-insulin dependent type 2 diabetes mellitus Sleep apnea Umbilical hernia Surgical History History of umbilical hernia repair Family History Mother No problems noted. Father Cancer Other Sleep apnea Social History Patient Tobacco Use Status: Never used Tobacco Advance Directives Date on File: 11/23/19 Review of Systems Const Reports as per HPI Eyes Reports no additional complaints ENT Reports no additional complaints Card Reports as per HPI Resp Reports as per HPI GI Reports no additional complaints Reports as per HPI Neuro Reports no additional complaints Psych Reports no additional complaints Endo Reports as per HPI Bob/Lymph Reports no additional complaints Aller/Immun Reports no additional complaints Physical Exam Const General: cooperative, comfortable, no acute distress, well developed, alert and awake Nutritional Appearance: overweight Orientation/consciousness: patient oriented x3 Limitations: no limitations HEENT Head: Yes normal to inspection, Yes normocephalic and Yes atraumatic Ears: hearing grossly normal bilaterally Eyes General: appearance normal, both eyes and all related structures Neck Neck: Yes normal visual inspection and Yes trachea midline Chest Chest palpation & inspection: normal inspection of the chest Resp Effort & Inspection: normal respiratory effort and able to speak in complete sentences Cardio Rate: regular rate GI Inspection: Yes normal to inspection General: Yes no CVA tenderness Back/Spine/Pelvis Back: no CVA tenderness Skin General skin exam: no rashes or lesions noted Neuro General: patient oriented x3 Extrem General: Yes normal to inspection Psych Appearance: grossly normal and well kempt Mental Status: mental status grossly normal Speech and movement: Normal speech and movement present and Clear speech present Affect: normal affect Attitude: cooperative Thought process: Normal thought process present Thought content: Normal thought content present Insight: Good insight present (Psych) Judgement: Good judgement present (Psych) Results AMB Urinalysis, Automated UA Leukoctes 0 Sangita/uL Last Edit by Bhaskar Figueroa [facility] on 10/31/22 09:17 UA Nitrite Negative Last Edit by Bhaskar Figueroa, [facility] on 10/31/22 09:17 UA Urobilinogen 0.2 mg/dL Last Edit by Bhaskar Figueroa [facility] on 10/31/22 09:17 UA Protein 0 mg/dL Last Edit by Bhaskar Figueroa, [facility] on 10/31/22 09:17 UA pH 6.0 Last Edit by Bhaskar Figueroa, [facility] on 10/31/22 09:17 UA Blood 0 Bob/uL Last Edit by Bhaskar Figueroa, [facility] on 10/31/22 09:17 UA Specific [place] 1.030 Last Edit by Bhaskar Figueroa, [facility] on 10/31/22 09:17 UA Ketone Negative Last Edit by Bhaskar Figueroa [facility] on 10/31/22 09:17 UA Bilirubin 0 mg/dL Last Edit by Bhaskar Figueroa, [facility] on 10/31/22 09:17 UA Glucose 0 mg/dL Last Edit by Bhaskar Figueroa [facility] on 10/31/22 09:17 Results Reviewed Results Reviewed: Laboratory Last Values Urine pH (Auto) 6.0 10/31/22 09:16 Specific [place] (Auto) 1.030 10/31/22 09:16 Urine Protein (Auto) 0 mg/dL 10/31/22 09:16 Glucose (UA)(Auto) 0 mg/dL 10/31/22 09:16 Urine Ketones (Auto) Negative 10/31/22 09:16 Urine Blood (Auto) 0 Bob/uL 10/31/22 09:16 Urine Nitrite (Auto) Negative 10/31/22 09:16 Urine Bilirubin (Auto) 0 mg/dL 10/31/22 09:16 Urine Urobilinogen (Auto) 0.2 mg/dL 10/31/22 09:16 Leukocyte Esterase (Auto) 0 Sangita/uL 10/31/22 09:16 Assessment & Plan Assessment & Plan (1) Hypogonadism in male: Code(s): E29.1 - Testicular hypofunction (2) Erectile dysfunction associated with type 2 diabetes mellitus: Code(s): E11.69 - Type 2 diabetes mellitus with other specified complication; N52.1 - Erectile dysfunction due to diseases classified elsewhere (3) Low testosterone: Code(s): R79.89 - Other specified abnormal findings of blood chemistry Plan In office urinalysis results reviewed with the patient today; as noted above. Recent testosterone labs results reviewed with the patient today; as noted above. Discussed at length potential causes for hypogonadism. Discussed and stressed the importance of continuing to maintain diabetes, weight loss, and compliance with CPAP machine for improvement in hypogonadism, erectile dysfunction, and for overall health and well-being. Will obtain FSH, LH, prolactin, estradiol, and SHBG now for further assessment evaluation. Continue 5 mg of Cialis daily as discussed and prescribed. Start testosterone as discussed and prescribed once labs above completed; patient aware and agreeable. Will obtain testosterone free and total, PSA, and CBC in 3 months. Patient denies any bothersome urinary issues at this time. He is happy with current voiding parameters. Follow-up in 3 months with labs to be completed prior; or sooner with any issues, concerns, and or questions. Orders: Orders Follicle Stimulating Hormone 10/31/22 E29.1 - Testicular hypofunction Lutenizing Hormone 10/31/22 E11.69 - Type 2 diabetes mellitus with other specified complication, N52.1 - Erectile dysfunction due to diseases classified elsewhere Prostate Specific Antigen 3 Months E29.1 - Testicular hypofunction Complete Blood Count no Diff 3 Months E29.1 - Testicular hypofunction AMB Urinalysis Automated 10/31/22 N39.0 - Urinary tract infection, site not specified Albumin Level 10/31/22 E29.1 - Testicular hypofunction Estradiol Ultra Sensitive 10/31/22 E29.1 - Testicular hypofunction Prolactin 10/31/22 E29.1 - Testicular hypofunction Sex Hormone Binding Globulin 10/31/22 E29.1 - Testicular hypofunction Testosterone, Free/Total 3 Months E29.1 - Testicular hypofunction Medications: New testosterone apply 2 pumps over max area - alternate shoulders on alternate days 2 pumps topical DAILY 30 days 75 grams 1RF E29.1 - Testicular hypofunction, R79.89 - Other specified abnormal findings of blood chemistry tadalafil (Cialis) 5 mg PO DAILY 90 days 90 tabs 4RF Patient Instructions: The patient had an opportunity to ask questions regarding the treatment plan. All questions were answered. Physical exam, labs, and imaging were discussed and reviewed in detail. As well as risks, benefits, and discussion of treatment choices. No major barriers to understanding were identified. The patient expressed understanding and agreement with the above treatment plan. The patient was made aware they should contact our office by phone for worsening of their current condition, the appearance of new symptoms, or with any questions or concerns. Compliance is encouraged with any medications and follow up testing that is ordered. It is a privilege to be allowed the opportunity to participate in? your urological care.? Again, if you have any questions or concerns If you have any questions or concerns please do not hesitate to contact me. The office is [phone]. This note is constructed using voice recognition software. While every effort has been made to ensure accuracy field nurse case manager errors may have been included. Yours sincerely, CHANCE Blanco Coding Level of Care Code Est Pt Level 4 (68231) Diagnoses Hypogonadism in male E29.1 Erectile dysfunction associated with type 2 diabetes mellitus E11.69; N52.1 Low testosterone R79.89
== END 2022-10-31 09:36 | disposition home or self-care (01) ==
PROVIDERS: PCP Internal Medicine; Visit Provider Nurse Practitioner Family
DX: E29.1 Testicular hypofunction (principal); E11.69 Type 2 diabetes mellitus with other specified complication; N52.1 Erectile dysfunction due to diseases classified elsewhere; R79.89 Other specified abnormal findings of blood chemistry
CPT/HCPCS: 99214

== ENCOUNTER → 2022-10-31 08:44 | Outpatient (BNVA) | payer BC, SELFPAY | PROVIDERS: Visit Provider Nurse Practitioner Family | DX: E29.1 Testicular hypofunction (principal); E11.69 Type 2 diabetes mellitus with other specified complication; N52.1 Erectile dysfunction due to diseases classified elsewhere; Z79.899 Other long term (current) drug therapy | CPT/HCPCS: 81003 ==

== ENCOUNTER 2022-11-19 09:30 | Outpatient (REF) | payer BC, SELFPAY ==
[2022-11-20 20:49] LABS: Follicle Stimulating Hormone 8.4 mIU/mL (1.6-8.0); Lutenizing Hormone 3.7 mIU/mL (1.5-9.3); Prolactin 4.2 ng/mL (2.0-18.0); Sex Hormone Binding Globulin 35 nmol/L (10-50)
[2022-11-25 23:29] LABS: Estradiol Ultra Sensitive 30 pg/mL (< OR = 29)
== END 2022-11-19 09:31 | disposition home or self-care (01) ==
LOC: HO.HMGCLDS 09:30
PROVIDERS: PCP Internal Medicine; Visit Provider Nurse Practitioner Family
DX: E29.1 Testicular hypofunction (principal); E11.69 Type 2 diabetes mellitus with other specified complication; N52.1 Erectile dysfunction due to diseases classified elsewhere
CPT/HCPCS: 36415; 82040; 82670; 83001; 83002; 84146; 84270

== ENCOUNTER 2023-09-07 07:59 | Outpatient (REF) | payer SELFPAY ==
[2023-09-07 10:07] LABS: MANUAL DIFF FLAG NO
[2023-09-07 10:21] LABS: Basophils Absolute Auto 0.1 X10*3/uL (0.0-0.2); Eosinophils Absolute Auto 0.2 X10*3/uL (0.0-0.4); Hematocrit 42.7 % (42.0-52.0); Hemoglobin 13.3 g/dl (14.0-18.0); Imm Gran Abs Auto 0.13 X10*3/uL (0.00-0.03); Imm Gran Pct Auto 1.4 % (0.0-0.4); Lymphocytes Absolute Auto 2.3 X10*3/uL (1.2-4.9); Lymphocytes Percent Auto 24.9 % (20-40); Mean Corpuscular HGB Conc 31.1 g/dl (31.0-36.0); Mean Corpuscular Hemoglobin 28.6 pg (27.0-33.0); Mean Corpuscular Volume 91.8 fL (80.0-98.0); Mean Platelet Volume 10.9 fL (9.4-12.4); Monocytes Absolute Auto 0.7 X10*3/uL (0.1-1.2); Monocytes Percent Auto 7.9 % (2-11); Neutrophils Absolute Auto 5.9 x10*3/uL (2.0-8.3); Neutrophils Percent Auto 62.8 % (45-73); Platelet Count 225 X10*3/uL (160-400); Red Blood Count 4.65 X10*6/uL (4.60-5.80); Red Cell Distribution Width 13.7 % (11.0-16.0); White Blood Count 9.4 X10*3/uL (4.8-10.8)
[2023-09-07 10:38] LABS: Estimated Average Glucose 148 mg/dL; Hemoglobin A1c % 6.8 % (<6.0)
[2023-09-07 10:45] LABS: Alanine Aminotransferase 26 U/L (0-40); Alkaline Phosphatase 75 U/L (39-117); Anion Gap 13 (12-20); Aspartate Amino Transferase 22 U/L (5-37); Bilirubin Total 0.4 mg/dL (0.0-1.0); Blood Urea Nitrogen 15 mg/dL (9-16); Calcium 9.5 mg/dL (8.4-10.2); Carbon Dioxide 27 mmol/L (22-29); Chloride 104 mmol/L (96-108); Cholesterol 137 mg/dL (<200); Estimated Glomerular Filt Rate > 60; Glucose Fasting 142 mg/dL (60-99); HDL Cholesterol 44 mg/dL (>40); LDL Cholesterol Calculated 73 mg/dL (<100); Sodium 139 mmol/L (135-145); Total Protein 7.1 g/dL (6.5-8.0); Triglycerides 101 mg/dL (<150)
[2023-09-07 10:55] LABS: Prostate Specific Antigen Scr 0.47 ng/mL (<0.05-4.0)
== END 2023-09-07 08:00 | disposition home or self-care (01) ==
LOC: HO.HMGCLDS 07:59
PROVIDERS: PCP Internal Medicine; Visit Provider Internal Medicine
DX: Z00.00 Encounter for general adult medical examination without abnormal findings (principal); Z12.5 Encounter for screening for malignant neoplasm of prostate; Z13.1 Encounter for screening for diabetes mellitus; E78.5 Hyperlipidemia, unspecified
CPT/HCPCS: 36415; 80053; 80061; 83036; 84153; 85025

== ENCOUNTER 2023-12-10 11:27 | Outpatient (REF) | payer BC, SELFPAY ==
--- NOTE | ~2023-12-10 | XR_ITS ---
EXAMINATION: XR CHEST CLINICAL INFORMATION: Cough COMPARISON: X-ray dated June 06, 2021 TECHNIQUE: 2 views of the chest were obtained. FINDINGS: Submitted for interpretation on December 23, 2023. Pulmonary reticular nodular pattern bilaterally. No pleural effusion. No pneumothorax. No hyperinflation. Cardiomediastinal silhouette is normal in size. Multilevel thoracic spondylosis. XR/XR chest 2V IMPRESSION: Chronic interstitial lung disease. Superimposed pneumonitis versus acute airspace disease cannot be excluded. Electronically signed by: Mika Lorenz MD 12/23/2023 07:43 AM EST
== END 2023-12-10 11:28 | disposition home or self-care (01) ==
LOC: HO.HMGCX 11:27
PROVIDERS: PCP Internal Medicine; Visit Provider Internal Medicine
DX: R05.9 Cough, unspecified (principal)
CPT/HCPCS: 71046

== ENCOUNTER → 2023-12-10 11:32 | Outpatient (BNV) | payer BC, SELFPAY | PROVIDERS: PCP Internal Medicine; Visit Provider Radiology Diagnostic Radiology | DX: R05.9 Cough, unspecified (principal) | CPT/HCPCS: 71046 ==

== ENCOUNTER 2024-02-26 11:58 | Emergency (ER) | payer BC, SELFPAY ==
--- NOTE | 2024-02-26 12:07 | ECG_ITS ---
Test Reason : PALPITATIONS Blood Pressure : */* mmHG Vent. Rate : 86 BPM Atrial Rate : 86 BPM P-R Int : 138 ms QRS Dur : 86 ms QT Int : 352 ms P-R-T Axes : 38 -14 19 degrees QTcB Int : 421 ms Normal sinus rhythm Normal ECG When compared with ECG of 06-Jun-2021 03:18, No significant change was found Referred By: Gerald Steinberg Electronically Signed By: MARISELA SPARKS MD
--- NOTE | 2024-02-26 12:10 | ED_ITS ---
HPI - General Adult General Chief complaint: Arrhythmia/Palpitations Stated complaint: sent by pcp r/o afib Time Seen by Provider: 02/26/24 14:04 Source: patient, family and old records reviewed Mode of arrival: ambulatory Limitations: no limitations History of Present Illness ED Provider: NEGRO SANTOS narrative: 53 yo male with PMH of DM, HTN, obesity just started Mounjaro, on 50mg metoprolol daily he had elevated HR last night but denies CP/SOB and it happened during sleep. No recent travel, calf pain, leg swelling. Denies infectious symptoms. No GIB symptoms such as black or bloody stools. He has no symptoms now and nothing was related to exertion. His PCP told him they wanted him to come to the ED for rule out afib. He denies any issues with DOAC use. We have the EKG from his PCP which confirmed afib 130s. No OTC medications, states he feels fine. He thinks an uncle has afib but isn't sure MD complaint: palpitations Onset (ago): day(s) (last night) Location: chest Radiation: non-radiation Severity: mild Quality: other (fast) Relieving factors: none Exacerbating factors: none Associated symptoms: denies other symptoms Treatments prior to arrival: none Related Data Home Medications ?Medication ?Instructions ?Recorded ?Confirmed Vitamin C 02/14/21 11/01/22 Vitamin D (with calcium) 1 tab PO DAILY 02/14/21 11/01/22 albuterol sulfate 90 mcg/actuation 0 mcg inhalation 03/11/21 11/01/22 aerosol inhaler lisinopril 10 mg tablet 10 mg PO DAILY 07/10/21 11/01/22 lorazepam 1 mg tablet 1 mg PO TID PRN 07/10/21 11/01/22 metformin 500 mg tablet 500 mg PO BID 07/10/21 11/01/22 sildenafil 100 mg tablet 100 mg PO DAILY PRN 07/02/22 11/01/22 Previous Rx's ?Medication ?Instructions ?Recorded tadalafil 5 mg tablet (Cialis) 5 mg PO DAILY 90 days #90 tabs 10/31/22 testosterone 2 pump topical DAILY 30 days #75 10/31/22 grams metoprolol succinate 25 mg 25 mg PO DAILY #90 tabs 01/21/23 tablet,extended release 24 hr Allergies Allergy/AdvReac Type Severity Reaction Status Date / Time No Known Allergies Allergy Verified 02/26/24 12:46 [No Known Allergies*] Review of Systems 2 Review of Systems: Constitutional : No Fever, No Chills, No Fatigue ENT/Mouth : No sore throat, No Rhinorrhea Eyes: No Eye Pain, No Swelling, No Redness Cardiovascular : No Chest Pain, No SOB, No Dyspnea on Exertion, pos palpitations Respiratory : No Cough, No Sputum Gastrointestinal : No Nausea, No Vomiting, No Diarrhea, No abdominal Pain Genitourinary : No Dysuria, No Urinary Frequency, No Hematuria, Musculoskeletal : No joint pain, No Myalgias, No Joint Swelling Skin : No Skin Lesions, No rash Neuro : No Weakness, No Numbness, No Dizziness, positive Headache All other systems reviewed and are negative [facility] Past Medical History Attestation statement: The following information was validated with the patient. Source: old records reviewed Medical History Hemorrhoids Morbid obesity Umbilical hernia Inguinal hernia Hypertension Sleep apnea Non-insulin dependent type 2 diabetes mellitus COVID-19 Surgical History History of umbilical hernia repair Family History Family History Mother No problems noted. Father Cancer Other Sleep apnea Social History Social History Patient Tobacco Use Status: Never used Tobacco Advance Directives Date on File: 11/23/19 Physical Exam ED Vital Signs: Vital Signs - 24 hr 02/26/24 12:43 Temperature 99.1 F Pulse Rate 91 Respiratory Rate 20 Blood Pressure 138/84 Pulse Oximetry 95 Oxygen Delivery Method Room Air BMI result Body Mass Index 57.8 Appearance: Alert. Oriented X3. No acute distress. Eyes: Pupils equal, round and reactive to light. ENT: Pharynx normal. Neck: Normal inspection. Neck supple. CVS: Normal heart rate and rhythm. Pulses normal. Respiratory: No respiratory distress. Breath sounds normal. Abdomen: Soft and nontender. Skin: Skin warm and dry. Normal skin color. Normal skin turgor. Extremities: No lower extremity edema. No calf ttp Neuro: Oriented X 3. No motor deficit. No sensory deficit. CN2-12 intact Course Course Course Narrative: RME, this is a rapid medical exam performed by Jason Steinberg please refer to primary provider for complete H&P- 53 year old male with HTN presenting for palpitations sent by his PCP. Pt reports palpitations began last night, also reporting anxiety and denies chest pain. tried relaxing/drinking water with no relief. reports he woke up today and went to his PCP who did an EKG, reportedly sent it to cardiology here, who advised him to come to the ER. Medical Decision Making Medical Decision Making [facility] Narrative: 53 yo male with PMH of DM, HTN, obesity just started Mounjaro, on 50mg metoprolol daily here with c/o palpitations last night but they went away no associated MENDOZA, chest pain, nothing related to exertion. No recent travel/procedures, feels fine. Saw Mugg's office today EKG showed afib rate 130s patient states he feels fine on exam in NSR took his metoprolol. PCP already started on eliquis he has no contraindications. I spoke to him about afib and what we need to control it and discussed risks vs benefits of eliquis. At this time given rate controlled, lack of symptoms and DOAC rx he is stable for DC Differential Diagnosis Differential Diagnoses: The differential diagnosis associated with the presentation includes PAF, lyte abnormality, thyroid issue no CP/SOB not related to exertion doubt ACS no CP/SOB no calf pain or swelling to suggest DVT/PE Admission/Observation Consideration of admission/observation: Escalation of care including admission/observation considered work up negative stable for DC Lab Data [facility] Lab Attestation statement: I reviewed the patient's lab results. 02/26/24 12:17 02/26/24 12:17 Labs: Lab Results 02/26/24 Range/Units 12:17 WBC 8.8 (4.8-10.8) X10*3/uL RBC 4.91 (4.60-5.80) X10*6/uL Hgb 13.9 L (14.0-18.0) g/dl Hct 43.9 (42.0-52.0) % MCV 89.4 (80.0-98.0) fL MCH 28.3 (27.0-33.0) pg MCHC 31.7 (31.0-36.0) g/dl RDW 13.4 (11.0-16.0) % Plt Count 250 (160-400) X10*3/uL MPV 9.8 (9.4-12.4) fL Immature Gran % (Auto) 1.4 H (0.0-0.4) % Neut % (Auto) 71.8 (45-73) % Lymph % (Auto) 18.6 L (20-40) % Sabine % (Auto) 6.5 (2-11) % Eos % (Auto) 0.9 (0-4) % Baso % (Auto) 0.8 (0-2) % Lymph # (Auto) 1.6 (1.2-4.9) X10*3/uL [place]ine # (Auto) 0.6 (0.1-1.2) X10*3/uL Eos # (Auto) 0.1 (0.0-0.4) X10*3/uL Baso # (Auto) 0.1 (0.0-0.2) X10*3/uL Abs Immat Gran (auto) 0.12 H (0.00-0.03) X10*3/uL Absolute Neuts (auto) 6.3 (2.0-8.3) x10*3/uL Absolute Nucleated RBC 0.000 (0.0-0.012) X10*3/uL Nucleated RBC % (auto) 0.0 (0.0-0.2) /100WBC PT 11.4 (10.9-12.4) SEC INR 1.0 (0.9-1.1) Sodium 139 (135-145) mmol/L Potassium 4.7 (3.3-5.1) mmol/L Chloride 105 (96-108) mmol/L Carbon Dioxide 29 (22-29) mmol/L Anion Gap 10 L (12-20) BUN 12 (9-16) mg/dL Creatinine 0.82 (0.5-1.4) mg/dL Estim Creat Clear Calc TNP Estimated GFR > 60 Random Glucose 166 H (60-115) mg/dL Calcium 8.9 D (8.4-10.2) mg/dL Magnesium 1.9 (1.6-2.6) mg/dL Total Bilirubin 0.4 (0.0-1.0) mg/dL AST 32 (5-37) U/L ALT 30 (0-40) U/L Alkaline Phosphatase 77 (39-117) U/L Troponin I High Sens < 2.7 (<3.5-35.0) ng/L Total Protein 7.7 (6.5-8.0) g/dL Albumin 4.0 (3.5-5.0) g/dL TSH 1.36 (0.32-4.0) uIU/mL Independent Interpretation I performed an independent interpretation of an: EKG Interpretation: Rate: 86 Rhythm: NSR Merritt: left Normal P waves. Normal MICA. Normal QRS complex. ST T wave : no NASIM, q waves in inf leads qTC: 421 prior studies: no change 2021 The study has been interpreted contemporaneously by me. . Independent Historian Clinical information obtained from an independent historian. History obtained from or confirmed by: Spouse External Record Review External record reviewed: Outpatient record Prescription Management I considered prescription management with: Other (eliquis confirmed PCP sent in a Rx) Discharge Plan Discharge Clinical Impression: Atrial fibrillation Qualifiers: Atrial fibrillation type: paroxysmal Qualified Code(s): I48.0 - Paroxysmal atrial fibrillation Patient Disposition: Home, Self-Care Instructions: Apixaban (By mouth), A-fib (Atrial Fibrillation) (ED) Additional Instructions: return for worsening symptoms, chest pain, shortness of breath, fainting, bleeding that you cannot control, fall and head injury follow up with your doctor occasionally you may have to increase your metoprolol take the first dose of eliquis tonight remember only tylenol Prescriptions: No Action metoprolol succinate 25 mg tablet extended release 24 hr 25 mg PO DAILY Qty: 90 0RF Rx Instructions: PLEASE CALL [phone] TO SCHEDULE APPPT OR YOU CAN OPT TO GET FUTURE REFILLS FROM PCP, DR. PARR. Thank you Vitamin C 500 mg capsule Vitamin D (with calcium) 25 mg tablet 1 tab PO DAILY albuterol sulfate 90 mcg/actuation HFA aerosol inhaler 0 mcg inhalation lisinopril 10 mg tablet 10 mg PO DAILY metformin 500 mg tablet 500 mg PO BID lorazepam 1 mg tablet 1 mg PO TID PRN sildenafil 100 mg tablet 100 mg PO DAILY PRN tadalafil [Cialis] 5 mg tablet 5 mg PO DAILY 90 Days Qty: 90 4RF testosterone 20.25 mg/1.25 gram (1.62 %) gel in metered-dose pump 2 pump topical DAILY 30 Days Qty: 75 1RF Rx Instructions: apply 2 pumps over max area - alternate shoulders on alternate days Print Language: Canadian
[2024-02-26 12:22] LABS: MANUAL DIFF FLAG NO
[2024-02-26 12:23] LABS: Basophils Absolute Auto 0.1 X10*3/uL (0.0-0.2); Basophils Percent Auto 0.8 % (0-2); Eosinophils Absolute Auto 0.1 X10*3/uL (0.0-0.4); Eosinophils Percent Auto 0.9 % (0-4); Hematocrit 43.9 % (42.0-52.0); Hemoglobin 13.9 g/dl (14.0-18.0); Imm Gran Abs Auto 0.12 X10*3/uL (0.00-0.03); Imm Gran Pct Auto 1.4 % (0.0-0.4); Lymphocytes Absolute Auto 1.6 X10*3/uL (1.2-4.9); Lymphocytes Percent Auto 18.6 % (20-40); Mean Corpuscular HGB Conc 31.7 g/dl (31.0-36.0); Mean Corpuscular Hemoglobin 28.3 pg (27.0-33.0); Mean Corpuscular Volume 89.4 fL (80.0-98.0); Mean Platelet Volume 9.8 fL (9.4-12.4); Monocytes Absolute Auto 0.6 X10*3/uL (0.1-1.2); Monocytes Percent Auto 6.5 % (2-11); Neutrophils Absolute Auto 6.3 x10*3/uL (2.0-8.3); Neutrophils Percent Auto 71.8 % (45-73); Platelet Count 250 X10*3/uL (160-400); Red Blood Count 4.91 X10*6/uL (4.60-5.80); Red Cell Distribution Width 13.4 % (11.0-16.0); White Blood Count 8.8 X10*3/uL (4.8-10.8)
[2024-02-26 12:30] LABS: Prothrombin Time 11.4 SEC (10.9-12.4)
[2024-02-26 12:42] LABS: Alanine Aminotransferase 30 U/L (0-40); Alkaline Phosphatase 77 U/L (39-117); Anion Gap 10 (12-20); Aspartate Amino Transferase 32 U/L (5-37); Bilirubin Total 0.4 mg/dL (0.0-1.0); Blood Urea Nitrogen 12 mg/dL (9-16); Calcium 8.9 mg/dL (8.4-10.2); Carbon Dioxide 29 mmol/L (22-29); Chloride 105 mmol/L (96-108); Estimated Glomerular Filt Rate > 60; Glucose Random 166 mg/dL (60-115); Magnesium 1.9 mg/dL (1.6-2.6); Potassium 4.7 mmol/L (3.3-5.1); Sodium 139 mmol/L (135-145); Total Protein 7.7 g/dL (6.5-8.0)
[2024-02-26 12:43] VITALS: BP 138/84; PULSE 91; RESP 20; TEMP 37.3; O2SAT 95; BMI 57.8
[2024-02-26 12:45] LABS: Troponin-I High Sensitivity < 2.7 ng/L (<3.5-35.0)
[2024-02-26 12:56] LABS: TSH reflex Free T4 1.36 uIU/mL (0.32-4.0)
[2024-02-26 14:31] VITALS: BP 138/84; PULSE 91; RESP 20; TEMP 37.3; O2SAT 95
== END 2024-02-26 14:32 | disposition home or self-care (01) ==
PROVIDERS: Physician Assistant; Emergency Provider Emergency Medicine; PCP Internal Medicine
DX: I48.0 Paroxysmal atrial fibrillation (principal); I10 Essential (primary) hypertension; E11.9 Type 2 diabetes mellitus without complications; E66.01 Morbid (severe) obesity due to excess calories; Z68.43 Body mass index [BMI] 50.0-59.9, adult; Z79.84 Long term (current) use of oral hypoglycemic drugs; Z79.899 Other long term (current) drug therapy
CPT/HCPCS: 36415; 80053; 83735; 84443; 84484; 85025; 85610; 93005; 99283

== ENCOUNTER → 2024-02-26 12:07 | Outpatient (BNV) | payer BC, SELFPAY | PROVIDERS: Emergency Provider Emergency Medicine; PCP Internal Medicine; Visit Provider Internal Medicine Cardiovascular Disease | DX: R00.2 Palpitations (principal) | CPT/HCPCS: 93010 ==

== ENCOUNTER → 2024-03-22 10:46 | Outpatient (AMB) | payer BC, SELFPAY ==
[2024-03-22 10:07] VITALS: BP 142/68; PULSE 78; BMI 57.2
--- NOTE | 2024-03-22 10:07 | MHC.OFFVIS ---
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 Required: No Accompanied by: Self / Same As Patient Allergies No Known Allergies [No Known Allergies*] Allergy (Verified 02/26/24 12:46) Medication List - Last Reconciled 03/22/24 by Sergey Magaña MD albuterol sulfate 90 mcg/actuation 0 mcg inhalation apixaban (Eliquis) 5 mg PO BID lisinopril 10 mg PO DAILY lorazepam 1 mg PO TID PRN metformin 500 mg PO BID metoprolol succinate ER 50 mg PO DAILY sildenafil 100 mg PO DAILY PRN tadalafil (Cialis) 5 mg PO DAILY 90 days tirzepatide (Mounjaro) 2.5 mg subcut QWEEK [Vitamin C ] [Vitamin D (with calcium) 1 tab PO DAILY] HPI Comments Details: Heriberto returns for follow-up. In 2021, he was seen regarding stabbing chest pains. At that time, myocardial perfusion imaging study had shown some basal lateral wall ischemia but we felt it might be just artifactual related to his weight. He states that he has not had any pain whatsoever for more than 2 years. He feels fine. The reason for this repeat visit is rather atrial fibrillation. Recently had an episode of palpitations that last for a few hours. He initially saw his PCP and found to have atrial fibrillation rapid rate on the EKG. Then sent to the emergency room but he had converted to sinus rhythm by then. He was already on metoprolol but it seems that his PCP had increase the dose for hypertension few months ago. After the atrial fibrillation diagnosis, he was put on Eliquis. Otherwise, he has no concerns and he is fairly active. Many cardiovascular risk factors. [facility] Medical History Hemorrhoids Morbid obesity Umbilical hernia Inguinal hernia Hypertension Sleep apnea Non-insulin dependent type 2 diabetes mellitus COVID-19 Surgical History History of umbilical hernia repair Family History Mother No problems noted. Father Cancer Other Sleep apnea Social History (Updated 03/22/24 @ 10:12 by Katie Ansari CMA) Alcohol intake: current Alcohol intake frequency: holidays/special occasions only Patient Tobacco Use Status: Never used Tobacco Advance Directives Date on File: 11/23/19 Review of Systems Const Denies chills, Denies fatigue, Denies fever(s), Denies weight gain and Denies weight loss ENT Denies dizziness Card Denies chest pain, Denies leg edema, Denies lightheadedness, Denies palpitations, Denies dyspnea on exertion, Denies orthopnea and Denies other Resp Denies cough and Denies dyspnea on exertion GI Denies hematochezia and Denies change in stool character Musc Denies abnormal gait, Denies muscle weakness, Denies numbness, Denies radiating pain into limb and Denies tingling Neuro Denies abnormal gait, Denies dizziness, Denies numbness and Denies tingling Endo Denies fatigue and Denies palpitations Physical Exam Vital Signs: Last Vital Signs Pulse 78 03/22/24 10:07 BP 142/68 H 03/22/24 10:07 BMI result Body Mass Index 57.2 Const General: comfortable and no acute distress Orientation/consciousness: patient oriented x3 HEENT Other: Unremarkable Head: Yes normal to inspection Neck Neck: Yes normal visual inspection Chest Chest palpation & inspection: normal inspection of the chest Resp Auscultation: clear to auscultation bilaterally Cardio Palpation: normal PMI Heart sounds: S1 normal heart sound present, S2 normal heart sound present, no gallops, no murmurs and no rubs GI Palpation (GI): Soft to palpation Back/Spine/Pelvis Other: unremarkable Skin General skin exam: no rashes or lesions noted Neuro General: patient oriented x3 Extrem General: Yes normal to inspection Psych Mental Status: mental status grossly normal Assessment & Plan Assessment & Plan (1) PAF (paroxysmal atrial fibrillation): Code(s): I48.0 - Paroxysmal atrial fibrillation Category: Medical Plan: EKG from 02/26/2024 done at PCP office shows atrial fibrillation at 135/Min. He can continue beta-blockers at the current dose. If necessary, we will increase the dose in the future. He is on Eliquis. However, the atrial fibrillation was an isolated episode lasted only about 6 hours or so. We will check Holter. Unless there are recurrent episodes may be able to stop the Eliquis in due course. (2) Morbid obesity: Code(s): E66.01 - Morbid (severe) obesity due to excess calories Category: Medical Plan: Discussed a lot about weight and cardiovascular implications, especially atrial fibrillation episodes. He did see bariatric in the past but not followed up. Strongly advised him to seek further care in this regard. (3) JASON (obstructive sleep apnea): Code(s): G47.33 - Obstructive sleep apnea (adult) (pediatric) Category: Medical Plan: Continue CPAP. (4) Abnormal stress test: Code(s): R94.39 - Abnormal result of other cardiovascular function study Category: Medical Plan: In 2021, had basal lateral wall ischemia on the stress test. However, could be very well related to his body habitus/weight. Clinically, he has got absolutely no chest pain and nothing exertional. Can continue to monitor. Orders: Orders ECG 7 day holter monitor Today I48.0 - Paroxysmal atrial fibrillation CA echo transthoracic complete Today I48.0 - Paroxysmal atrial fibrillation Medications: Changed From metoprolol succinate ER PLEASE CALL [phone] TO SCHEDULE APPPT OR YOU CAN OPT TO GET FUTURE REFILLS FROM PCP, DR. PARR. Thank you 25 mg PO DAILY 90 tabs 0RF To metoprolol succinate ER PLEASE CALL [phone] TO SCHEDULE APPPT OR YOU CAN OPT TO GET FUTURE REFILLS FROM PCPDR. PARR. Thank you 50 mg PO DAILY Coding Level of Care Code Est Pt Level 4 (84493) Complex EM visit Add On G2211 Diagnoses PAF (paroxysmal atrial fibrillation) I48.0 Morbid obesity E66.01 JASON (obstructive sleep apnea) G47.33 Abnormal stress test R94.39
== END | disposition home or self-care (01) ==
PROVIDERS: PCP Internal Medicine; Visit Provider Internal Medicine
DX: I48.0 Paroxysmal atrial fibrillation (principal); E66.01 Morbid (severe) obesity due to excess calories; G47.33 Obstructive sleep apnea (adult) (pediatric); R94.39 Abnormal result of other cardiovascular function study
CPT/HCPCS: 99214

== ENCOUNTER → 2024-04-12 07:59 | Outpatient (REF) | payer BC, SELFPAY ==
--- OUTSIDE RECORDS SUMMARY | 2024-04-12 08:03 | XMS_ITS | Patient Health Record ---
Author Organization [facility] Address [address] [place] [address] Care Team Providers Care Log Sawyer Name Role Phone Gabino Mckeon MD Primary Care Provider Unavailab Ramin Pickens Unavailable [phone] REASON FOR REFERRAL No Information MEDICATIONS Medication SIG (Take, Route, Frequency, Duration) Notes Start Date End Date Status Vitamin D 25 MCG (1000 UT) 1 tablet Oral ly Once a day for 30 day(s) Active Lisinopril 10 MG TAKE 1 TABLET BY ABIMAEL TH EVERY DAY Oral for 90 Active Vitamin C 500 MG as directed Orally Active metFORMIN HCl 500 MG TAKE 1 TABLET BY MO UTH TWICE A DAY Oral for 90 Active IMMUNIZATIONS Vaccine Route Administration Date Status Comme nts Influenza Unknown 10/11/2019 Administered SOCIAL HISTORY Tobacco Use: Social History Observation Description Date Details (start date - stop date) Never Smoker NA - NA Sex Assigned At : Social History Observation Description Sex Assigned At Unknown Tobacco Use/Smoking Question Answer Notes Patient is a nonsmoker Alcohol Screen Question Answer Notes Did you have a drink contain ing alcohol in the past year? Yes How often did you have a dri nk containing alcohol in the past year? 2 to 4 times a month (2 points) How many drinks did you have on a typical day when you were drinking in the past year? 7 to 9 drinks (3 points) How often did you have 6 or more drinks on one occasion in the past year? Less than monthly (1 point) Points 6 Interpretation Positive PROBLEMS Problem Type ICD Code Onset Dates Problem Status W/U Status Risk SNOMED Code Notes Problem Encounter for screening for malignant neoplasm of colon (Z12.11) Active confirmed Screening for malignant neoplasm of colon (322140389) Problem Preprocedural examination (Z01.818) Active confirmed Preprocedural examination (232098275349713) Problem Diverticulosis of colon (K57.30) Active confirmed Diverticulosi s of colon (185801941) PLAN OF TREATMENT Future Test Test Name Order Date COLONOSCOPY 04/10/2020 Insurance Providers Payer Name Payer Address Payer Phone Subscriber Number Group Number Insured Name Patient Relationship to Insured Coverage Start Date Coverage End Date [facility] [address] [place], [place] [id number] JORGE SHARP Self - patient is the insured 2 MEDICAL (GENERAL) HISTORY Medical History History ICD Code Covid infection in 04/2019 developed into bronchitis and pneumonia NIDDM Sleep apnea - CPAP machine Hypertension Denies [place],CVA,Lung disease,renal disease Saw Dr. Ayala for hemorrhoids--no aleta teofilo nor colonoscopy. Surgical History Surgery Date(Month/Year) Umblical Hernia surgery 2004 Inginal hernia as a child
--- NOTE | 2024-04-12 08:08 | CA_ITS ---
Transthoracic Echocardiogram Patient (Last, First, Middle): Heriberto Foley F Gender: Male Date of : 1970 Age: 53 Procedure Date: 04/12/2024 Procedure Type: Transthoracic Echocardiogram Location: OP Height: 185.42 cm Weight: 193.69 kg BSA: 2.97 m2 Heart Rate: bpm BP: 136 / 86 mmHg Peanut Cleaner: WALKER Referring MD: Sergey Magaña MD Measurement Psychologist: Sean Vargas MD Symptoms: I48.0 - Paroxysmal atrial fibrillation Study Quality: Technically Difficult ECG Rhythm: Sinus Conclusions: - 1. Technically limited study 2. Normal LV ejection fraction 65-70% 3. Normal cardiac valvular Dopplers Findings Procedure Information Contrast agent, definity, is being given per protocol without apparent complications. Left Ventricle Normal left ventricular size, thickness, and systolic function. The visually estimated ejection fraction is between 65-70%. Spectral Doppler is indicative of a normal filling pattern. Right Ventricle The right ventricle was not well visualized. Atria The left atrium is normal in size. Interatrial shunt cannot be excluded. The right atrium was not well visualized. Aortic Valve The aortic valve structure and function is likely normal. There is no aortic valve stenosis. There is no aortic valve regurgitation. Mitral Valve Likely normal mitral valve structure and function. There is trace mitral valve regurgitation. There is no mitral valve stenosis. Pulmonic Valve The pulmonic valve was not well visualized. Tricuspid Valve The tricuspid valve was not well visualized. Tricuspid regurgitation envelope is inadequate for calculation of right ventricular systolic pressure. Indeterminate right atrial pressure. Great Vessels The aorta was not well visualized. The pulmonary artery was not well visualized. Venous The inferior vena cava was not well visualized. Pericardium/Pleural The pericardium was not well visualized. Prior Study Comparison No significant change compared to prior study dated: 08/28/2021. Measurements 2D Linear Measurements IVSd: 1.02 0.6-0.9/0.6-1.0 cm LVIDd: 4.97 3.9-5.3/4.2-5.9 cm LVIDd Index: 1.67 2.4-3.2/2.2-3.1 cm/m2 LVIDs: 3.16 2.0-3.6 cm LVPWd: 1.06 0.7-1.1 cm LA Diam: 4.10 2.7-3.8/3.0-4.0 cm LAIDs Index: 1.38 1.5-2.3 cm/m2 LV Mass: 236.74 67-162/88-224 g LV Mass Index: 79.71 43-95/49-115 g/m2 LVOT Diam: 2.30 3.0+(-)1.3 cm 2D Systolic Function EF 4C: 65.30 >55% EF 2C: 68.30 >55% EF BiP: 65.10 >55% Mitral Valve MV Pk E: 1.07 MV PK A: 0.58 MV Decel Time: 242.00 E/A: 1.90 E'Lateral: 10.90 E'Medial: 8.70 E/E' Med: 12.30 E/E' Lat: 9.80 PHT: 71.00 MVA PHT: 3.10 Decel [place]: 4.43 Aortic Valve AoV Pk Kareem: 1.56 AoV Mn Kareem: 1.02 AoV VTI: 0.33 AoV Pk Grad: 10.00 Aov Mn Grad: 5.00 REGINA Cont.VTI: 3.25 LVOT LVOT Pk Kareem: 1.31 LVOT Mn Kareem: 0.87 LVOT VTI: 0.26 LVOT Pk Grad: 7.00 LVOT Mn Grad: 3.00 LVOT Diam: 2.30 LVOT Area: 4.15 Diastolic Function MV Pk E: 1.07 MV Pk A: 0.58 E/A: 1.90 E'Medial: 8.70 E/E' Med: 12.30 E' Laterial: 10.90 E/E' Lat: 9.80 Right Ventricle TAPSE (mm): 31.00 TVS' Kareem: 14.20 Great Vessels Aorta Sinus of Valsalva: 3.68 2.0-3.5 cm Ao Asc: 3.60 2.1-3.4 cm Updated in Other Vendor System with Status of Final Sean Vargas MD electronically signed on 04/13/2024 6:16:26 PM with status of Final
== END ==
LOC: HO.CARD 07:59
PROVIDERS: PCP Internal Medicine; Visit Provider Internal Medicine
DX: I48.0 Paroxysmal atrial fibrillation (principal)
CPT/HCPCS: 93242; 93306; Q9957

== ENCOUNTER → 2024-04-12 08:08 | Outpatient (BNV) | payer BC, SELFPAY | PROVIDERS: PCP Internal Medicine; Visit Provider Internal Medicine Cardiovascular Disease | DX: I48.0 Paroxysmal atrial fibrillation (principal) | CPT/HCPCS: 93306 ==

== ENCOUNTER 2024-06-09 08:46 | Outpatient (REF) | payer BC, SELFPAY ==
[2024-06-09 10:04] LABS: Estimated Average Glucose 143 mg/dL; Hemoglobin A1C 176.2452 umol/L; Hemoglobin A1c % 6.6 % (<6.0)
== END 2024-06-09 08:47 | disposition home or self-care (01) ==
LOC: HO.LAB 08:46
PROVIDERS: PCP Internal Medicine; Visit Provider Internal Medicine
DX: E11.9 Type 2 diabetes mellitus without complications (principal)
CPT/HCPCS: 36415; 83036

== ENCOUNTER 2024-06-09 09:03 | Outpatient (AMB) | payer BC, SELFPAY ==
--- NOTE | 2024-06-09 09:16 | MHC.OFFVIS ---
Vital Signs 06/09/24 09:18 Height 6 ft 1 in Weight 422 lb 13.546 oz BMI 55.8 BP 130/70 Blood Pressure Location Lt radial Position Sitting Pulse 66 Pulse Source Pulse Oximeter Intake Visit Reasons: follow up/ echo/holter Neurophysiologist Required: No Accompanied by: Self / Same As Patient Allergies No Known Allergies [No Known Allergies*] Allergy (Verified 02/26/24 12:46) Medication List - Last Reconciled 06/09/24 by Sergey Magaña MD albuterol sulfate 90 mcg/actuation 0 mcg inhalation apixaban (Eliquis) 5 mg PO BID lisinopril 10 mg PO DAILY lorazepam 1 mg PO TID PRN metformin 500 mg PO BID metoprolol succinate ER 75 mg PO DAILY sildenafil 100 mg PO DAILY PRN tadalafil (Cialis) 5 mg PO DAILY 90 days tirzepatide (Mounjaro) 2.5 mg subcut QWEEK [Vitamin C ] [Vitamin D (with calcium) 1 tab PO DAILY] HPI Comments Details: Heriberto returns for follow-up. In 2021, he was seen regarding stabbing chest pains. At that time, myocardial perfusion imaging study had shown some basal lateral wall ischemia but we felt it might be just artifactual related to his weight. He states that he has not had any pain whatsoever since then. He feels fine. The reason for this repeat visit is rather atrial fibrillation. Recently had an episode of palpitations that last for a few hours. He initially saw his PCP and found to have atrial fibrillation rapid rate on the EKG. Then sent to the emergency room but he had converted to sinus rhythm by then. He was on metoprolol but the doses have been increased recently. He was also put on Eliquis. Since last seen, no new issues. He states he feels great. Absolutely no symptoms. Nothing exertional. In fact, he actually states he feels better during activity and once he starts walking extra feels great. [facility] Medical History Hemorrhoids Morbid obesity Umbilical hernia Inguinal hernia Hypertension Sleep apnea Non-insulin dependent type 2 diabetes mellitus COVID-19 Surgical History History of umbilical hernia repair Family History Mother No problems noted. Father Cancer Other Sleep apnea Social History Alcohol intake: current Alcohol intake frequency: holidays/special occasions only Patient Tobacco Use Status: Never used Tobacco Advance Directives Date on File: 11/23/19 Review of Systems Const Denies chills, Denies fatigue, Denies fever(s), Denies frequent falls, Denies weakness, Denies weight gain and Denies weight loss ENT Denies dizziness Card Denies chest pain, Denies leg edema, Denies lightheadedness, Denies palpitations, Denies dyspnea and Denies dyspnea on exertion Resp Denies cough, Denies dyspnea and Denies dyspnea on exertion GI Denies hematochezia Musc Denies abnormal gait, Denies muscle weakness, Denies numbness, Denies radiating pain into limb and Denies tingling Neuro Denies abnormal gait, Denies dizziness, Denies frequent falls, Denies numbness, Denies tingling and Denies weakness Endo Denies fatigue and Denies palpitations Physical Exam Vital Signs: Last Vital Signs Pulse 66 06/09/24 09:18 BP 130/70 06/09/24 09:18 BMI result Body Mass Index 55.8 Const General: comfortable and no acute distress Orientation/consciousness: patient oriented x3 HEENT Other: Unremarkable Head: Yes normal to inspection Neck Neck: Yes normal visual inspection Chest Chest palpation & inspection: normal inspection of the chest Resp Auscultation: clear to auscultation bilaterally Cardio Palpation: normal PMI Heart sounds: S1 normal heart sound present, S2 normal heart sound present, no gallops, no murmurs and no rubs GI Palpation (GI): Soft to palpation Back/Spine/Pelvis Other: unremarkable Skin General skin exam: no rashes or lesions noted Neuro General: patient oriented x3 Extrem General: Yes normal to inspection Psych Mental Status: mental status grossly normal Assessment & Plan Assessment & Plan (1) PAF (paroxysmal atrial fibrillation): Code(s): I48.0 - Paroxysmal atrial fibrillation Category: Medical Plan: EKG from 02/2024 done at PCP office shows atrial fibrillation at 135/Min. In the Holter, no evidence of recurring atrial fibrillation. We can continue the beta-blockers. With regard to anticoagulation, no clear recently continue as it was one isolated episode lasting just for a few hours. We discussed about this at length today. If indeed there is any recurrence, then we will need to resume. He agrees with that. Pros and cons of continuing/stopping discussed. Holter also shows the one 9 beat run of wide complex rhythm he has preserved LVEF on echocardiogram and no ischemic heart disease either. Hence beta-blockers will suffice. (2) Morbid obesity: Code(s): E66.01 - Morbid (severe) obesity due to excess calories Category: Medical Plan: Discussed a lot about weight and cardiovascular implications, especially atrial fibrillation episodes. He did see bariatric in the past but not followed up. Strongly advised him to seek further care in this regard. (3) JASON (obstructive sleep apnea): Code(s): G47.33 - Obstructive sleep apnea (adult) (pediatric) Category: Medical Plan: Continue CPAP. (4) Abnormal stress test: Code(s): R94.39 - Abnormal result of other cardiovascular function study Category: Medical Plan: In 2021, had basal lateral wall ischemia on the stress test. However, could be very well related to his body habitus/weight. Clinically, he has got absolutely no chest pain and nothing exertional. Can continue to monitor. Plan Discussion Notes I discussed with the patient the rationale for withholding anticoagulation therapy at this time due to the absence of recurrent atrial fibrillation episodes beyond the isolated incident in February. The potential risks and benefits of anticoagulation were reviewed, noting that the singular, short duration of atrial fibrillation does not currently justify long-term anticoagulation therapy but may be reconsidered if recurrent episodes occur. The patient is in agreement with this approach. I also elaborated on the steady management of his arrhythmia with metoprolol, ensuring an understanding of his current 75 mg regimen adjusted to address this condition and the supply of appropriate prescription tablets. His goals for weight loss and exercise were supported as beneficial for his overall cardiovascular health. I will follow-up in six months to evaluate progress and response to ongoing therapy. The patient expressed understanding and consent to the plan and left the office with clear instructions to contact me if symptoms return. Patient was informed and verbally consented to the use of an ambient scribe for clinic note documentation during this visit. Medications: Changed From metoprolol succinate ER ( can also be 50mg tabs - take 1.5 daily) 75 mg PO DAILY To metoprolol succinate ER 75 mg (3 x 25 mg) PO DAILY 270 tabs 3RF 90 days Patient Instructions: - Continue taking metoprolol as prescribed to manage your blood pressure and heart rate. - You can stop taking Eliquis for now, but start it again if you have another episode of atrial fibrillation. - Maintain your daily exercises, especially walking, as it helps improve your symptoms. - Focus on weight loss and healthy eating to manage your blood pressure and borderline diabetes. - Schedule a follow-up appointment in six months to reevaluate your heart condition. - Please call if you experience more significant heart symptoms or if new issues arise. Coding Level of Care Code Est Pt Level 4 (71163) Complex EM visit Add On G2211 Diagnoses PAF (paroxysmal atrial fibrillation) I48.0 Morbid obesity E66.01 JASON (obstructive sleep apnea) G47.33 Abnormal stress test R94.39
[2024-06-09 09:18] VITALS: BP 130/70; PULSE 66; BMI 55.8
== END 2024-06-09 09:41 | disposition home or self-care (01) ==
LOC: HO.HCS 09:03
PROVIDERS: PCP Internal Medicine; Visit Provider Internal Medicine
DX: I48.0 Paroxysmal atrial fibrillation (principal); E66.01 Morbid (severe) obesity due to excess calories; G47.33 Obstructive sleep apnea (adult) (pediatric); R94.39 Abnormal result of other cardiovascular function study
CPT/HCPCS: 99214

== ENCOUNTER 2024-08-03 09:58 | Outpatient (REF) | payer BC, SELFPAY ==
--- NOTE | ~2024-08-03 | XR_ITS ---
EXAMINATION: XR KNEE, RIGHT CLINICAL INFORMATION: R/O FX , FELL COMPARISON: None available. TECHNIQUE: AP and lateral of the right knee. FINDINGS: There is moderate narrowing of the medial joint space and minimal narrowing of the lateral joint space. There are moderate osteophytes along the medial joint line and patellofemoral joint. There is an ossified body measuring 6 x 15 mm above the patella on the lateral view. There is a small amount of joint fluid. There is thickening of the patellar tendon XR/XR knee RT 2V IMPRESSION: Moderate osteoarthritis mostly affecting the medial compartment and patellofemoral joint. Possible ossified intra-articular body in the suprapatellar pouch. Suspected patellar tendon thickening/tendinopathy. Electronically signed by: Jose Amaya MD 08/03/2024 10:22 AM EDT
--- OUTSIDE RECORDS SUMMARY | 2024-08-03 11:28 | XMS_ITS | Patient Health Record ---
Author Organization [facility] Address [address] [place] [address] Care Team Providers Care Culled Fruit Packer Name Role Phone Gabino Mckeon MD Primary Care Provider Unavailab Ramin Pickens Unavailable [phone] Reason For Referral No Information Medications Medication SIG (Take, Route, Frequency, Duration) Notes [...] TWICE A DAY Oral for 90 Active Immunizations Vaccine Route Administration Date Status Comme nts Influenza Unknown 10/11/2019 Administered Social History Tobacco Use: Social History Observation Description Date Details (start date - stop date) Never Smoker NA - NA Tobacco Use/Smoking Question Answer Notes Patient is [...] monthly (1 point) Points 6 Interpretation Positive Section Notes: Nonsmoker; occ alcohol Problems Problem Type SNOMED Code ICD Code Onset Dates Problem Status W/U Status Risk Notes Problem Encounter for screening for malignant neoplasm of colon (Z12.11) Active confirmed Problem Preprocedural examination (960220284280429) Preprocedural examination (Z01.818) Active confirmed Problem Diverticulosis of colon (051761637) Diverticulosis of colon (K57.30) Active confirmed Plan Of Treatment Future Test Test Name Order Date COLONOSCOPY 04/10/2020 Insurance Providers Payer Name Payer Address Payer Phone Subscriber Number Group Number Insured Name Patient Relationship to Insured Coverage Start Date Coverage End Date [facility] [address] [place], [place] [id number] JORGE SHARP Self - patient is the insured 2 Medical (General) History Medical History History ICD Code Covid infection in 04/2019 developed into bronchitis and pneumonia NIDDM Sleep apnea - CPAP machine Hypertension Denies [place],CVA,Lung disease,renal disease Saw Dr. Ayala for hemorrhoids--no aleta teofilo nor colonoscopy. Surgical History Surgery Date(Month/Year) Umblical Hernia surgery 2004 Inginal hernia as a child
== END 2024-08-03 09:59 | disposition home or self-care (01) ==
LOC: HO.HMGCX 09:58
PROVIDERS: PCP Internal Medicine; Visit Provider Internal Medicine
DX: Z91.81 History of falling (principal)
CPT/HCPCS: 73560

== ENCOUNTER → 2024-08-03 10:04 | Outpatient (BNV) | payer BC, SELFPAY | PROVIDERS: PCP Internal Medicine; Visit Provider Radiology Diagnostic Radiology | DX: M17.11 Unilateral primary osteoarthritis, right knee (principal) | CPT/HCPCS: 73560 ==

== ENCOUNTER 2024-08-31 10:36 | Outpatient (AMB) | payer BC, SELFPAY ==
--- NOTE | 2024-08-31 10:38 | MHC.OFFVIS ---
Vital Signs 08/31/24 10:44 Height 6 ft 1 in Weight 428 lb BMI 56.5 BP 165/82 H Blood Pressure Location Rt radial Position Sitting Pulse 86 Intake Visit Reasons: bleeding hemorrhoids. Intake Note: Patient referred by pcp Dr. Mckeon for evaluation and treatment of bleeding hemorrhoids. Patient c/o: blood after BM. Colonoscopy: Dr. Donahue 02-15-2021 Etcher Apprentice Required: No Accompanied by: Self / Same As Patient Allergies No Known Allergies (No Known Allergies*) Allergy (Verified 08/31/24 10:43) Medication List - Last Reconciled 08/31/24 by Mahesh Ayala MD albuterol sulfate 90 mcg/actuation 0 mcg inhalation lisinopril 10 mg PO DAILY metformin 500 mg PO BID metoprolol succinate ER 75 mg (3 x 25 mg) PO DAILY 90 days sildenafil 100 mg PO DAILY PRN tadalafil (Cialis) 5 mg PO DAILY 90 days tirzepatide (Mounjaro) 2.5 mg subcut QWEEK [Vitamin C ] [Vitamin D (with calcium) 1 tab PO DAILY] HPI HPI bleeding hemorrhoids.: Details: 54-year-old male referred for bleeding hemorrhoids. He says he has known he has had hemorrhoids for several years now. This would occasionally gets swollen with some mild discomfort This has for the past 6 months he would notice small amounts of blood on wiping. He says that this has not every day. He says this happens periodically. He used to be on Eliquis but he had been off this since Jun, 2024. He denies significant constipation. 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 He is also morbidly obese. His BMI is 56. [facility] Medical History Bleeding hemorrhoids Hemorrhoids Morbid obesity Umbilical hernia Inguinal hernia Hypertension Sleep apnea Non-insulin dependent type 2 diabetes mellitus COVID-19 Surgical History History of umbilical hernia repair Family History Mother No problems noted. Father Cancer Other Sleep apnea Social History Alcohol intake: current Alcohol intake frequency: holidays/special occasions only Patient Tobacco Use Status: Never used Tobacco Advance Directives Date on File: 11/23/19 Review of Systems Const Denies chills and Denies fever(s) Card Denies chest pain, Denies dyspnea and Reports dyspnea on exertion Resp Denies cough, Denies dyspnea and Reports dyspnea on exertion GI Reports hematochezia and Denies change in bowel habits Denies hematuria and Denies difficulty urinating Musc Denies back pain and Denies limited range of motion Neuro Denies focal weakness and Denies convulsions Psych Denies depression and Denies mood swings Physical Exam Vital Signs: Last Vital Signs Pulse 86 08/31/24 10:44 BP 165/82 H 08/31/24 10:44 BMI result Body Mass Index 56.5 Const Other: Morbidly obese General: comfortable and no acute distress Orientation/consciousness: patient oriented x3 Neck Neck: Yes no lymphadenopathy Resp Auscultation: clear to auscultation bilaterally Cardio Rhythm: regular rhythm GI Other: Rectal exam shows external hemorrhoids on the right, moderate size Palpation (GI): Soft to palpation, nontender and no guarding Neuro General: patient oriented x3 Office Procedures Anoscopy He was in rahul-knife position. The anoscope was gently inserted. A full examination of the anal canal was done. He did have mixed internal external hemorrhoids on both the left and right side. There were no obvious lesions. The hemorrhoids were moderate size. There were no ulcers or fissure. There was no bleeding. There is no induration on digital exam. [id number] Assessment & Plan Assessment & Plan (1) Bleeding hemorrhoids: Code(s): K64.9 - Unspecified hemorrhoids Category: Medical Plan: He does have internal external hemorrhoids on both the left and right side. These are moderate size. There is no evidence of any acute bleeding currently. There were no other lesions in the anal canal. He says he is up-to-date with this colonoscopy I explained to him the option of hemorrhoidectomy for his bleeding hemorrhoids. I discussed the technique of this procedure. I reviewed the risks including but not limited to bleeding, infections, postop pain, as well as the benefits and alternatives. I reviewed with him what to expect postoperatively He does have cardiac problems as well as very morbid obesity. He understands these perioperative risks are much higher because of these. He says that he is aware and he does not really has not to have any surgical intervention with the near future. He says he is trying to lose weight and is following Dr. Magaña of Cardiology for his cardiac issues I gave him my card and told him he can always follow up in the office. He says that he his bleeding is not every day and he would like to hold off on surgical intervention I discussed with him the benefits of taking Colace and Metamucil. Coding Level of Care Code New Pt Level 3 (75234) Diagnoses Bleeding hemorrhoids K64.9 CPT Codes Details - CPT: 85270-Psihijec ([id number])
[2024-08-31 10:44] VITALS: BP 165/82; PULSE 86; BMI 56.5
--- OUTSIDE RECORDS SUMMARY | 2024-08-31 11:38 | XMS_ITS ---
Author Organization Unknown ENCOUNTERS Encounter Performer Location Date Diagnosis Diagnosis Status Emergency [address] [address] [id number] DANITZA Pre Admit [address] [address] [id number] Emergency [facility] [address] [place] [address] [id number] DANITZA Pre Admit [address] [address] [id number] Outpatient [address] [address] [id number] DANITZA Pre Admit TALITA PARR [address] [address] [id number] *Note: Encounters from your own facility or health system may be excluded. Allergies, Adverse Reactions, Alerts Allergen Type Severity Identification Date Medications Name Date Quantity Days Supplied GPI Number
--- OUTSIDE RECORDS SUMMARY | 2024-08-31 11:38 | XMS_ITS | Patient Health Record ---
Author Organization [facility] Address [address] [place] [address] Care Team Providers Care Manager Data Center Name Role Phone Mike (RETIRED) Gabino BARBOZA Primary Care Provider Unavailable Ramin Donahue Unavailable [phone] Reason For Referral No Information Medications Medication [...] colon (Z12.11) Active confirmed Problem Preprocedural examination ([id number]) Preprocedural examination (Z01.818) Active confirmed Problem Diverticulosis of colon (354702194) Diverticulosis of colon (K57.30) Active confirmed Plan Of Treatment Future Test Test Name Order Date COLONOSCOPY 04/10/2020 Insurance Providers Payer Name Payer Address Payer Phone Subscriber Number Group Number Insured Name Patient Relationship to Insured Coverage Start Date Coverage End Date [facility] [address] [place], [place] [id number] [phone] [id number] [id number] Self - patient is the insured 2 Medical (General) History Medical History History ICD Code Covid infection in 04/2019 developed into bronchitis and pneumonia NIDDM Sleep apnea - CPAP machine Hypertension Denies [place],CVA,Lung disease,renal disease Saw Dr. Ayala for hemorrhoids--no [place] nor colonoscopy. Surgical History Surgery Date(Month/Year) Umblical Hernia surgery 2004 Inginal hernia as a child
== END 2024-08-31 11:10 | disposition home or self-care (01) ==
LOC: HO.HGS 10:37
PROVIDERS: PCP Internal Medicine; Referring Provider Internal Medicine; Visit Provider Surgery
DX: K64.9 Unspecified hemorrhoids (principal)
CPT/HCPCS: 46600; 99203

== ENCOUNTER → 2024-08-31 10:36 | Outpatient (BNVA) | payer BC, SELFPAY | PROVIDERS: PCP Internal Medicine; Referring Provider Internal Medicine; Visit Provider Surgery | DX: K64.9 Unspecified hemorrhoids (principal) | CPT/HCPCS: 46600 ==